=== PATIENT | female | born 1950 | race Caucasian/White ===

== ENCOUNTER 2020-06-24 12:26 | Outpatient (CLI) | payer MEDICARE, SELFPAY ==
--- NOTE | ~2020-06-24 | XR_ITS ---
EXAMINATION: XR chest 2V DATE: 06/24/2020 09:35 INDICATION: Shortness of breath TECHNIQUE: PA and lateral views of the chest are obtained. COMPARISON: 06/05/2012 FINDINGS: The lungs are free of acute opacities. There is no pleural effusion or pneumothorax. The ca rdiomediastinal silhouette is normal. There is mild thoracic spondylosis. There are apparent changes of left mastectomy with implant reconstruction and left axillary lymph node dissection. IMPRESSION: 1. No acute cardiopulmonary abnormality. Reviewed, dictated and finalized at location A.
[2020-06-24 09:41] LABS: Basophils Absolute Auto 0.1 K/mm3 (0.0-0.1); Basophils Percent Auto 1.6 % (0.2-1.2); Eosinophils Absolute Auto 0.6 K/mm3 (0-0.3); Eosinophils Percent Auto 8.1 % (0-4.4); Hematocrit 39.2 % (37.0-47.0); Hemoglobin 12.9 g/dL (12.0-15.0); Immature Granulocyte Absolute 0.04 K/mm3 (0.00-0.031); Immature Granulocyte Percent A 0.6 % (0-0.5); Lymphocytes Absolute Auto 1.76 K/mm3 (0.9-3.2); Lymphocytes Percent Auto 24.9 % (18.3-44.2); Mean Corpuscular HGB Conc 32.9 g/dl (32-36); Mean Corpuscular Hemoglobin 30.6 pg (26-34); Mean Corpuscular Volume 92.9 fl (80-100); Mean Platelet Volume 9.3 fl (7.4-10.4); Monocytes Absolute Auto 0.5 K/mm3 (0.1-0.6); Monocytes Percent Auto 6.5 % (2.6-8.5); Neutrophils Absolute Auto 4.1 K/mm3 (1.3-6.7); Neutrophils Percent Auto 58.3 % (45.5-73.1); Platelet Count Result 324 k/mm3 (150-375); Red Blood Count 4.22 M/mm3 (4.2-5.4); White Blood Count 7.1 K/mm3 (4.5-10.0)
[2020-06-24 09:53] LABS: Alanine Aminotransferase 135 U/L (4-35); Albumin Level 4.3 g/dL (3.5-5.1); Alkaline Phosphatase 316 U/L (38-126); Anion Gap 13.2 mmol/L (7-16); Aspartate Amino Transferase 38 U/L (14-36); Bilirubin,Total 0.4 mg/dL (0.2-1.3); Blood Urea Nitrogen 17 mg/dL (7-17); Calcium 9.1 mg/dL (8.4-10.2); Carbon Dioxide 28 mmol/L (22-30); Chloride 103 mmol/L (98-107); Estimated Glomerular Filt Rate > 60; Glucose 102 mg/dL (65-105); Potassium 4.2 mmol/L (3.4-5.0); Sodium 140 mmol/L (137-145)
[2020-06-24 13:54] LABS: Hepatitis B Surface Antigen Negative (Negative)
[2020-06-24 14:00] LABS: HAV RESULT Negative (Negative); Hepatitis B Core IgM Result Negative (Negative)
[2020-06-24 14:11] LABS: Hepatitis C Virus Antibody Negative (Negative)
[2020-06-29 18:50] LABS: EBV Nuclear Ab Interpretation Past; EBV Virus Capsid Ag IgM Ab <36.00 U/mL (<36.00)
== END 2020-06-24 12:27 | disposition home or self-care (01) ==
PROVIDERS: PCP Family Medicine; Visit Provider Family Medicine
DX: R06.02 Shortness of breath (principal); R05 Cough; R53.83 Other fatigue; R74.8 Abnormal levels of other serum enzymes
CPT/HCPCS: 36415; 71046; 80053; 80074; 85025; 86664; 86665

== ENCOUNTER 2020-07-13 08:39 | Outpatient (CLI) | payer MEDICARE, SELFPAY ==
--- NOTE | ~2020-07-13 | US_ITS ---
EXAMINATION: US right upper quadrant DATE: 07/13/2020 09:24 INDICATION: Abnormal levels of other serum enzymes. TECHNIQUE: Multiple grayscale and Doppler ultrasound images of the abdomen were obtained. COMPARISON: None FINDINGS: The visualized portions of the head, body, and tail of the pancreas are normal. The liver i s normal without focal lesion. There is normal flow in main portal vein. The gallbladder is normal in size and contains a 4 mm polyp, likely a benign cholesterol polyp needing no follow-up. No gallstone s or gallbladder wall thickening. There was no sonographic Meyer sign. The common duct is normal and measures 6 mm. IMPRESSION: 1. No etiology for abnormal liver function tests. Reviewed, dictated and finalized at location B.
[2020-07-13 09:41] LABS: Alanine Aminotransferase 23 U/L (4-35); Albumin Level 4.4 g/dL (3.5-5.1); Alkaline Phosphatase 99 U/L (38-126); Anion Gap 7 mmol/L (8-16); Aspartate Amino Transferase 30 U/L (14-36); Bilirubin,Total 0.5 mg/dL (0.2-1.3); Blood Urea Nitrogen 15 mg/dL (7-17); Calcium 9.3 mg/dL (8.4-10.2); Carbon Dioxide 30 mmol/L (22-30); Chloride 101 mmol/L (98-107); Cholesterol 178 mg/dL (0-200); Estimated Glomerular Filt Rate > 60; Glucose 103 mg/dL (65-105); HDL Direct 55 mg/dL; Sodium 138 mmol/L (137-145); Triglycerides 124 mg/dL (<150)
[2020-07-13 09:52] LABS: LDL Cholesterol Direct 95 mg/dL
== END 2020-07-13 08:40 | disposition home or self-care (01) ==
LOC: ANHIMG 08:39
PROVIDERS: PCP Family Medicine; Visit Provider Family Medicine
DX: R74.8 Abnormal levels of other serum enzymes (principal); R53.83 Other fatigue; F41.8 Other specified anxiety disorders; Z79.899 Other long term (current) drug therapy
CPT/HCPCS: 36415; 76705; 80053; 80061; 82248

== ENCOUNTER 2020-08-26 10:21 | Outpatient (CLI) | payer MEDICARE, SELFPAY ==
--- NOTE | ~2020-08-26 | MM_ITS ---
EXAMINATION: MM scrn laura implant RT w oswaldo HISTORY: Screening mammogram TECHNIQUE: Craniocaudal and mediolateral oblique 3-D tomosynthesis images with implant displacement a nd synthetic 2-D images were generated. Craniocaudal and mediolateral oblique views of the breasts wi thout implant displacement were obtained using full field digital mammography. CAD analysis was submi tted and interpreted. COMPARISON: 05/23/2018, 03/01/2017, 09/28/2015 right implant digital screening mammogram examinations BREAST PARENCHYMAL COMPOSITION: The breasts are heterogeneously dense, which may obscure small masses . FINDINGS: Right breast implant is noted, centered well lateral of midline. There is no evidence of tidwell spicious mass, calcification, or architectural distortion to suggest malignancy in either breast. The re has been no suspicious interval change. IMPRESSION: 1. No mammographic evidence of malignancy. 2. Recommend routine screening mammography in one year. BI-RADS Category 1: Negative Reviewed, dictated and finalized at location A.
== END 2020-08-26 10:22 | disposition home or self-care (01) ==
PROVIDERS: PCP Family Medicine; Visit Provider Obstetrics & Gynecology
DX: Z12.31 Encounter for screening mammogram for malignant neoplasm of breast (principal)
CPT/HCPCS: 77063; 77067

== ENCOUNTER 2021-02-06 14:10 | Outpatient (CLI) | payer MEDICARE, SELFPAY ==
--- NOTE | 2021-02-06 14:18 | ECG_ITS ---
Measurements Intervals Paicines Rate: 65 P: 58 OR: 172 QRS: 40 QRSD: 78 T: 36 QT: 389 QTc: 406 Interpretive Statements SINUS RHYTHM INCOMPLETE RIGHT BUNDLE BRANCH BLOCK DELAYED PRECORDIAL R/S TRANSITION BORDERLINE T WAVE ABNORMALITY- ANTERIOR LEADS BORDERLINE ECG Electronically Signed On 02-06-2021 14:49:35 SENIOR BIOINFORMATICS SCIENTIST by Wesley Rodrigues D.O.
== END 2021-02-06 14:11 | disposition home or self-care (01) ==
PROVIDERS: PCP Family Medicine; Visit Provider Family Medicine
DX: Z01.810 Encounter for preprocedural cardiovascular examination (principal); I45.10 Unspecified right bundle-branch block
CPT/HCPCS: 93005

== ENCOUNTER 2021-06-12 03:16 | Day surgery (SDC) | payer MEDICARE, SELFPAY ==
[2021-05-24 13:00] VITALS: BMI 25.7
[2021-06-12 09:09] VITALS: BP 126/70; PULSE 72; RESP 16; TEMP 36.4; O2SAT 98; BMI 25.1
[2021-06-12] MEDS: LACTATED RINGERS 1,000 ML 150 ML IV CONT (09:25)
--- NOTE | 2021-06-12 09:38 | WPDANESEPPF ---
Anes - Initial Pre Proc Eval Procedure: Operation Date: 06/12/21 10:30 Proposed Procedures p Screening Colonoscopy - Fred Jorgensen MD Date/Time: 06/12/21 09:38 Surgeon: Fred Jorgensen MD Pre Op Diagnosis: neoplasm screening Patient Data Age: 70 Gender: F Height: 1.63 m Weight: 66.4 kg Last Vital Signs Temp 36.4 C 06/12/21 09:09 Pulse 72 06/12/21 09:09 Resp 16 06/12/21 09:09 BP 126/70 06/12/21 09:09 Pulse Ox 98 06/12/21 09:09 Allergies Allergy/AdvReac Type Severity Reaction Status Date / Time latex Allergy Unknown Rash Verified 06/12/21 09:07 Penicillins Allergy Unknown rash Verified 06/12/21 09:07 Sulfa (Sulfonamide Allergy Unknown allergic Verified 06/12/21 09:07 Antibiotics) Home Medications Medication Instructions Recorded Confirmed Type latanoprost 0.005 % eye drops 1 drop EACH EYE QPM 01/11/20 06/12/21 History fluoxetine 10 mg capsule 10 mg PO HS #90 cap 03/31/21 06/12/21 Rx timolol maleate 1 drp RIGHT EYE BID 05/24/21 06/12/21 History Patient hx anesthesia problems: none Family hx anesthesia problems: none PMFSH Past Medical History Medical History Arthroplasty planned 11-10-2016 Cataract Hepatitis C antibody test negative Surgical History Surgical History H/O left breast implant H/O mastectomy Family History Family History Mother Family history of glaucoma Family history of malignant neoplasm of breast in first degree relative Father Hypertension Family history of aortic aneurysm, Onset Age: 74 Social History Social History Smoking packs per day: 1 Smoking cigarettes per day: 20.0 Years smoked: 19 Smoking pack-years: 19.00 Smoking status: Former smoker Tobacco type: cigarettes Smoking end date: 12/02/86 Alcohol intake: current Alcohol use details: socially Living arrangements: with family Gender identity (if verbalized by the patient): Female Spiritual care concerns: No Anes - Eval Final PreProcedure Day of Procedure 06/12/21 09:38 Patient weight: normal Heart: regular rate and rhythm Lungs: clear to auscultation Airway: Mallampati scale class II Neurological: alert and oriented Last oral intake: >/= 8 hours ASA classification: II Emergent: no Anesthetic plan: proceed Anesthesia type and monitoring: general GIVS and standard monitoring Informed Consent: The patient's anesthetic plan and its attendant risks and benefits were discussed with the patient/family/POA. Questions were solicited and answers provided to the satisfaction of the patient/family/POA.
--- NOTE | 2021-06-12 09:59 | PM.HPGS ---
History of Present Illness History of Present Illness Consent: Risks, benefits, and alternatives have been discussed and questions answered. Patient agrees to proceed with procedure. Chief complaint: neoplasm screening Narrative: Luly Anderson is a 70 year old female Referred for colon cancer screening Review of Systems Review of Systems: All systems reviewed & are unremarkable except as noted in HPI and below PMFSH Past Medical History Medical History Arthroplasty planned 11-10-2016 Cataract Hepatitis C antibody test negative Surgical History Surgical History H/O left breast implant H/O mastectomy Family History Family History Mother Family history of glaucoma Family history of malignant neoplasm of breast in first degree relative Father Hypertension Family history of aortic aneurysm, Onset Age: 74 Social History Social History Smoking packs per day: 1 Smoking cigarettes per day: 20.0 Years smoked: 19 Smoking pack-years: 19.00 Smoking status: Former smoker Tobacco type: cigarettes Smoking end date: 12/02/86 Alcohol intake: current Alcohol use details: socially Living arrangements: with family Gender identity (if verbalized by the patient): Female Spiritual care concerns: No Meds Home Medications and Allergies Home Medications Medication Instructions Recorded Confirmed Type latanoprost 0.005 % eye drops 1 drop EACH EYE QPM 01/11/20 06/12/21 History fluoxetine 10 mg capsule 10 mg PO HS #90 cap 03/31/21 06/12/21 Rx timolol maleate 1 drp RIGHT EYE BID 05/24/21 06/12/21 History Allergies Allergy/AdvReac Type Severity Reaction Status Date / Time latex Allergy Unknown Rash Verified 06/12/21 09:07 Penicillins Allergy Unknown rash Verified 06/12/21 09:07 Sulfa (Sulfonamide Allergy Unknown allergic Verified 06/12/21 09:07 Antibiotics) Vital Signs Vital Signs - 24 hr 06/12/21 09:09 Temperature 36.4 C Pulse Rate 72 Respiratory Rate 16 Blood Pressure 126/70 Pulse Oximetry 98 Exam Resp: Auscultation: clear to auscultation bilaterally Cardio: Rate: regular rate Rhythm: regular rhythm GI: GI Palp: Yes Soft to palpation and No Tenderness to palpation present (GI) Assessment and Plan Assessment and plan (1) Colon cancer screening: Code(s): Z12.11 - Encounter for screening for malignant neoplasm of colon Status: Acute Assessment and Plan: Colonoscopy with possible biopsy or polypectomy or cautery or injection of substances.
[2021-06-12 10:22] VITALS: BP 96/50; PULSE 72; RESP 22; O2SAT 97
[2021-06-12 10:32] VITALS: BP 104/53; PULSE 65; RESP 22; O2SAT 100
[2021-06-12 10:42] VITALS: BP 101/90; PULSE 59; RESP 13; O2SAT 98
== END 2021-06-12 11:00 | disposition home or self-care (01) ==
PROVIDERS: PCP Family Medicine; Visit Provider Internal Medicine Gastroenterology
PROC: 0DJD8ZZ Inspection of Lower Intestinal Tract, Via Natural or Artificial Opening Endoscopic (ICD-10-PCS; CPT 45378; principal; 2021-06-12 10:30)
DX: Z12.11 Encounter for screening for malignant neoplasm of colon (principal); Z87.891 Personal history of nicotine dependence
CPT/HCPCS: 45380; 88305; J2704; J7120

== ENCOUNTER 2022-03-20 08:35 | Outpatient (CLI) | payer MEDICARE, SELFPAY ==
--- NOTE | ~2022-03-20 | MM_ITS ---
EXAMINATION: MM scrn laura implant BI w oswaldo HISTORY: Screening mammogram TECHNIQUE: Craniocaudal and mediolateral oblique 3-D tomosynthesis images with implant displacement a nd synthetic 2-D images were generated. Craniocaudal and mediolateral oblique views of the breasts wi thout implant displacement were obtained using full field digital mammography. CAD analysis was submi tted and interpreted. COMPARISON: 08/26/2020, 05/23/2018, 03/01/2017 right implant screening mammogram examinations BREAST PARENCHYMAL COMPOSITION: The breasts are heterogeneously dense, which may obscure small masses . FINDINGS: Status post left mastectomy and implant reconstruction. Right breast implant. There is no evidence of suspicious mass, calcification, or architectural distortion to suggest malig eddie in either breast. There has been no suspicious interval change. IMPRESSION: 1. No mammographic evidence of malignancy. 2. Recommend routine screening mammography in one year. BI-RADS Category 1: Negative Reviewed, dictated and finalized at location A.
== END 2022-03-20 08:36 | disposition home or self-care (01) ==
LOC: ANHIMG 08:36
PROVIDERS: PCP Family Medicine; Visit Provider Obstetrics & Gynecology
DX: Z12.31 Encounter for screening mammogram for malignant neoplasm of breast (principal)
CPT/HCPCS: 77063; 77067

== ENCOUNTER 2022-08-31 08:44 | Outpatient (CLI) | payer MEDICARE, SELFPAY ==
--- NOTE | 2022-08-31 08:55 | EST_ITS ---
Patient Info Name: Luly Anderson Age: 71 years : 1950 Gender: Female Ht: 64 in Wt: 153 lbs BSA: 1.79 m2 HR: 76 bpm BP: 135 / 66 mmHg Exam Date: 08/31/2022 9:11 AM Exam Location: [facility] Patient Status: Outpatient Admit Date: 08/31/2022 Staff Ordering Physician: Suly Leonard NP-[employer] Packer: Mariann Weston RDCS Attending Provider: ELHAM KAT DO Referring Physician: Aisha MONIQUE; Exam Type: CA stress echo Study Info Indications R07.9 - Chest pain, unspecified Summary 1. 1. Negative Jese exercise stress test for ischemic ST changes by ECG criteria. 2. 2. Reduced functional capacity, achieving 5.6 METs of workload. 3. 3. Appropriate HR response to exercise. 4. 4. Appropriate HR recovery at 1 minute post exercise. 5. 5. Negative stress echocardiogram for ischemia by wall motion analysis. 6. 6. Patient informed of the above results. Stress Echo Findings Left Ventricle Appropriate increase in LV endocardial thickening with systole. Appropriate augmentation of contractility with systole. No wall motion abnormality. Left Ventricle Normal LV systolic function, no wall motion abnormality. Protocol: Jese Stress ECG Details Stage: REST Duration (min): 1 min : 11 sec Speed (mph): 0.0 Grade (%): 0 HR (bpm): 77 SBP (mmHg): 135 DBP (mmHg): 66 METS: --- Stage: REST Duration (min): 14 min : 30 sec Speed (mph): 0.0 Grade (%): 0 HR (bpm): 82 SBP (mmHg): 135 DBP (mmHg): 66 METS: --- Stage: STAGE 1 Duration (min): 1 min : 0 sec Speed (mph): 1.7 Grade (%): 10 HR (bpm): 112 SBP (mmHg): 135 DBP (mmHg): 66 METS: --- Stage: STAGE 1 Duration (min): 2 min : 0 sec Speed (mph): 1.7 Grade (%): 10 HR (bpm): 137 SBP (mmHg): 135 DBP (mmHg): 66 METS: --- Stage: STAGE 1 Duration (min): 3 min : 0 sec Speed (mph): 1.7 Grade (%): 10 HR (bpm): 146 SBP (mmHg): 182 DBP (mmHg): 52 METS: --- Stage: STAGE 2 Duration (min): 0 min : 31 sec Speed (mph): 0.0 Grade (%): 0 HR (bpm): 148 SBP (mmHg): 182 DBP (mmHg): 52 METS: --- Stage: RECOVERY Duration (min): 0 min : 28 sec Speed (mph): 0.0 Grade (%): 0 HR (bpm): 130 SBP (mmHg): 182 DBP (mmHg): 52 METS: --- Stage: RECOVERY Duration (min): 1 min : 28 sec Speed (mph): 0.0 Grade (%): 0 HR (bpm): 99 SBP (mmHg): 183 DBP (mmHg): 53 METS: --- Stage: RECOVERY Duration (min): 2 min : 28 sec Speed (mph): 0.0 Grade (%): 0 HR (bpm): 90 SBP (mmHg): 183 DBP (mmHg): 53 METS: --- Stage: RECOVERY Duration (min): 3 min : 28 sec Speed (mph): 0.0 Grade (%): 0 HR (bpm): 84 SBP (mmHg): 152 DBP (mmHg): 60 METS: --- Stage: RECOVERY Duration (min): 4 min : 28 sec Speed (mph): 0.0 Grade (%): 0 HR (bpm): 77 SBP (mmHg): 152 DBP (mmHg): 60 METS: --- -------
== END 2022-08-31 08:45 | disposition home or self-care (01) ==
PROVIDERS: PCP Family Medicine; Visit Provider Family Medicine
DX: R07.9 Chest pain, unspecified (principal)
CPT/HCPCS: 93351

== ENCOUNTER 2022-10-03 08:18 | Outpatient (CLI) | payer MEDICARE, SELFPAY ==
[2022-10-04 11:07] LABS: Kit Draw Collected
== END 2022-10-03 08:19 | disposition home or self-care (01) ==
LOC: ANHGOSHLAB 08:21
PROVIDERS: PCP Family Medicine; Visit Provider Nurse Practitioner
DX: Z13.21 Encounter for screening for nutritional disorder (principal); Z13.220 Encounter for screening for lipoid disorders; Z13.29 Encounter for screening for other suspected endocrine disorder; Z13.6 Encounter for screening for cardiovascular disorders; Z53.8 Procedure and treatment not carried out for other reasons
CPT/HCPCS: 99199; 36415

== ENCOUNTER 2022-10-15 09:40 | Outpatient (CLI) | payer MEDICARE, SELFPAY ==
--- NOTE | ~2022-10-15 | DEXA_ITS ---
Bone Density Report Name: CAL STAFFORD Age: 71 Sex: Female Ethnicity: White Date of : 1950 Indication: postmenopausal; screening for osteoporosis; height loss; inflammatory bowel disease; cancer; Referring Provider: EDMOND VELÁZQUEZ Study: Bone densitometry was performed. Exam Date: October 15, 2022 Accession number: [id number] Bone Density: Region BMD T-score Z-score Classification AP Spine(L1, L3, L4) 0.985 -0.6 1.6 Normal Femoral Neck (Left) 0.600 -2.2 -0.4 Osteopenia Total Hip (Left) 0.625 -2.6 -1.0 Osteoporosis World Health Organization criteria for BMD impression classify patients as: Normal (T-score at or above -1.0), Osteopenia (T-score between -1.0 and -2.5), or Osteoporosis (T-score at or below -2.5). 10-year Fracture Risk: FRAX not reported because: Some T-score for Spine Total or Hip Total or Femoral Neck at or below -2.5 Clinical Information Provided by Patient: Has used the following medications: Vitamin D, Calcium Has the following medical conditions: Cancer, Inflammatory bowel diseases Patient maximum height was 65 Menopause Age: 51 No regular weight bearing exercise Drinks caffeinated beverages Onset of menses at age 14 Number of children 0 Impression: The patient has osteoporosis, based on the Left Total Hip T-score. Discussion: INCREASED RISK OF FRACTURE. BONE DENSITY IS UNDESIRABLY LOW AT ONE OR MORE SKELETAL SITES, CONSISTENT WITH POSTMENOPAUSAL OSTEOPOROSIS. This patient's lowest T-score meets the World Health Organization's (WHO) criteria for osteoporosis at one or more sites (T-score -2.5 or below). In untreated patients, the risk of osteoporotic fracture increases approximately two-fold for each 1.0 SD decrease in T-score. Low bone density is not the only risk factor for fracture; also consider factors such as patient's age, frailty or poor health, risk of falling, risk of injury, previous osteoporotic fracture, family history of osteoporosis, cigarette smoking, low body weight, etc. Not everyone with low bone mineral density has osteoporosis; osteomalacia and other metabolic bone disorders should also be considered. Patients who have osteoporosis should be evaluated for specific diseases and conditions (secondary causes) that may cause or contribute to bone loss. The [place] Association of Clinical Endocrinologists (AACE) and National Osteoporosis Foundation (NOF) recommend pharmacologic intervention for all postmenopausal women whose T-score is in this range. The patient should follow a healthful lifestyle (good nutrition with adequate calcium and vitamin D, and appropriate weight-bearing exercise). Follow-Up: Consider a repeat BMD and Vertebral Fracture Assessment (VFA) exam in 2 years or sooner if medically necessary, to reassess this patient's status. Reported by: SHEY on 10/15/2022 10:00:00 AM. __
== END 2022-10-15 09:41 | disposition home or self-care (01) ==
LOC: ANHIMG 09:41
PROVIDERS: PCP Family Medicine; Visit Provider Nurse Practitioner
DX: Z78.0 Asymptomatic menopausal state (principal); M85.852 Other specified disorders of bone density and structure, left thigh; M81.0 Age-related osteoporosis without current pathological fracture
CPT/HCPCS: 77080

== ENCOUNTER 2022-10-16 10:49 | Outpatient (RCR) | payer MEDICARE, SELFPAY | END 2022-10-17 08:41 | disposition home or self-care (01) | LOC: ANHGOSHPT 10:49 | PROVIDERS: PCP Family Medicine; Visit Provider Nurse Practitioner | DX: M54.9 Dorsalgia, unspecified (principal); M62.89 Other specified disorders of muscle | CPT/HCPCS: 99199 ==

== ENCOUNTER 2022-11-12 15:08 | Outpatient (CLI) | payer MEDICARE, SELFPAY ==
--- NOTE | ~2022-11-12 | XR_ITS ---
EXAMINATION: XR chest 2V Exam Date/Time: 11/12/2022 15:23 CLEANING SUPERVISOR HISTORY: R05.9 - Cough, unspecified Comparison: 06/24/2020. RESULT: Lines, tubes, and devices: Bilateral breast augmentation. Left breast/axillary surgical clips. Lungs and pleura: Clear. Cardiomediastinal silhouette: Stable. Other: No acute osseous or upper abdominal finding. IMPRESSION: No acute cardiopulmonary process. Reviewed, dictated and finalized at location K. NING SUPERVISOR
== END 2022-11-12 15:09 | disposition home or self-care (01) ==
PROVIDERS: PCP Family Medicine; Visit Provider Nurse Practitioner
DX: R05.9 Cough, unspecified (principal)
CPT/HCPCS: 71046

== ENCOUNTER 2022-12-26 11:15 | Outpatient (RCR) | payer MEDICARE, SELFPAY ==
--- NOTE | 2022-10-03 10:49 | PTOPEVAL1 ---
Assessment and note entered by Tyler Anderson, PT Evaluation Information Assessment Status Evaluation Diagnosis lumbar pain Onset gradual Subjective Information Patient reports she has been noticing more back pain that is moving around to her groin lately. She is unable to sleep on her stomach, been having trouble with getting in and out of bed without pain. The pain is worse in the AM until she starts moving around. The patient has a DEXA bone scan scheduled for . She reports she has not been as diligent with her exercise program since , but still tried to get in at least 10,000 steps a day. Patient had a herniated disc about 23 years ago. Reported Pain Level Pain Score 3: Self Report Assessment PT Clinical Summary Luly is a 71 year old female coming into the clinic today for lumbar pain with radiating symptoms along the groin bilaterally. Patient's main issues are inability to sleep on her stomach, getting in and out of bed pain free, and just general pain. The patient has weakness in JONATHAN hips and core along with tightness in her JONATHAN rectus femoris. Physical therapy should be able to help with the weakness with strengthening exercises and stretching for the rectus femoris. As the problems diminish she should see decreased pain with position transfers and in general. Plan of Care Interventions Electrical Stimulation,Gait Training,Hot Pack/Cold Pack,Manual Therapy,Neuro Re-education,Patient/ Caregiver Education,Therapeutic Activities, Therapeutic Exercise,Ultrasound PT Services Indicated Yes Treatment Frequency and 1x/wk Duration These treatments will address the objective and functional deficits as defined above. The patient will be advanced safely and appropriately in order for the patient to progress towards his/her prior level of function. Additional exercises will be introduced and as well as a comprehensive home exercise program upon discharge, if needed, ?to ensure carryover of functional gains achieved in the clinic. This treatment plan has been reviewed and agreement upon by the patient.
--- NOTE | 2022-10-17 09:16 | PTOPEVAL1 ---
Assessment and note entered by Jaelyn Palmer DPT Evaluation Information Assessment Status Evaluation Diagnosis lumbar pain Onset gradual Subjective Information see below Reported Pain Level Pain Score 3: Self Report Additional Pain Score Comments The patient reports a history of low back pain radiating anteriorly as well as pelvic pain. She has a previous R FREDDIE and was recently diagnosed with L hip osteoporosis and lumbar arthritis. History of endometriosis with multiple laparoscopies. History of miscarriages, no live births. She reports a current increased frequency of urination as well as urge incontinence. Will get some urine leakage on the way to the bathroom, not every time. Typically no stress incontinence, infrequently in the past. She also reports a history of IBS and fecal incontinence several times a week. Assessment PT Clinical Summary The patient reports additional complaints of pelvic pain, urinary and fecal incontinence. She demonstrates pelvic floor muscle strength impairments and overall increased muscle tone which are contributing to her pain and incontinence. She will benefit from address these impairments in addition to her back pain in order to safely reduce pain and dysfunction. Plan of Care Interventions Electrical Stimulation,Hot Pack/Cold Pack,Manual Therapy,Neuro Re-education,Patient/Caregiver Education,Therapeutic Activities,Therapeutic Exercise,Self-Care/Home Management PT Services Indicated Yes Treatment Frequency and 1 time a week for 6 weeks Duration These treatments will address the objective and functional deficits as defined above. The patient will be advanced safely and appropriately in order for the patient to progress towards his/her prior level of function. Additional exercises will be introduced and as well as a comprehensive home exercise program upon discharge, if needed, ?to ensure carryover of functional gains achieved in the clinic. This treatment plan has been reviewed and agreement upon by the patient.
--- NOTE | 2022-11-28 16:15 | PTOPPROG ---
Assessment and note entered by Jaelyn Palmer DPT Evaluation Information Assessment Status Progress Diagnosis lumbar pain Onset gradual Subjective Information Pt reports some improvements with therapy, not using the restroom as much. Also reports less urgency with voiding. Highest back pain in last week 04/10 and lowest 02/08. Reports 2 instances of urinary incontinence in the last week after waiting too long to void. Assessment PT Clinical Summary The patient has made some progress in therapy. She reports decreased pain and decreased incontinence and demonstrates improved pelvic floor strength and endurance, and hip strength. She will benefit from continued therapy to further address her pain and incontinence and safely return to [facility]. Plan of Care Interventions Hot Pack/Cold Pack,Manual Therapy,Neuro Re- education,Patient/Caregiver Education,Therapeutic Activities,Therapeutic Exercise,Self-Care/Home Management PT Services Indicated Yes Treatment Frequency and 1 time a week for 6 weeks Duration These treatments will address the objective and functional deficits as defined above. The patient will be advanced safely and appropriately in order for the patient to progress towards his/her prior level of function. Additional exercises will be introduced and as well as a comprehensive home exercise program upon discharge, if needed, ?to ensure carryover of functional gains achieved in the clinic. This treatment plan has been reviewed and agreement upon by the patient.
--- NOTE | 2022-12-28 11:50 | PCPTNOTE ---
This treatment is being continued on visit number [id number]. Please see documentation on both accounts to view progress. Completed interventions, outcomes, and problems have been marked as Inactive to facilitate the copying of the Care plan routine for recurring accounts.
== END 2022-12-28 11:38 | disposition home or self-care (01) ==
LOC: ANHGOSHPT 11:15
PROVIDERS: PCP Family Medicine; Visit Provider Nurse Practitioner
DX: M62.89 Other specified disorders of muscle (principal)
CPT/HCPCS: 97110; 97112; 97140; 97161

== ENCOUNTER 2023-02-25 10:00 | Outpatient (RCR) | payer MEDICARE, SELFPAY ==
--- NOTE | 2022-12-28 11:48 | PCPTNOTE ---
The treatment documented on this account is a continuation of the treatment documented on visit number [id number]. Please see documentation on both accounts to view progress. The Plan of Care has been transitioned and updated within the new V#. I have addressed and agree with the discipline specific Problems, Interventions, and Goals for the current certification period. Completed interventions, outcomes, and problems have been marked as Inactive to facilitate the copying of the Care plan routine for recurring accounts.
--- NOTE | 2023-01-10 10:30 | PTOPPROG ---
Assessment and note entered by Jaelyn Palmer DPT Evaluation Information Assessment Status Progress Subjective Information Highest pain in the last week 03/11 and lowest 02/08 . Pt reports improvements in frequency of urination and minimal urgency unless she drinks a couple sodas. No incontinence in the last week. Assessment PT Clinical Summary The patient has made good progress in therapy. She reports decreased pain, decreased urinary urgency /frequency, and no incontinence in the last week. She demonstrates less pain with pelvic floor palpation and improved hip strength. Due to her progress but continued pain, pt will benefit from further therapy to safely return to prior level of function. Plan of Care Interventions Hot Pack/Cold Pack,Manual Therapy,Neuro Re- education,Patient/Caregiver Education,Therapeutic Activities,Therapeutic Exercise,Self-Care/Home Management PT Services Indicated Yes Treatment Frequency and 1 time every other week for 3 visits total Duration These treatments will address the objective and functional deficits as defined above. The patient will be advanced safely and appropriately in order for the patient to progress towards his/her prior level of function. Additional exercises will be introduced and as well as a comprehensive home exercise program upon discharge, if needed, ?to ensure carryover of functional gains achieved in the clinic. This treatment plan has been reviewed and agreement upon by the patient.
--- NOTE | 2023-02-25 10:43 | PTOPDC ---
Assessment and note entered by Jaelyn Palmer DPT Evaluation Information Assessment Status Discharge Subjective Information Pt reports her hip has been bothering her a lot since coming back from vacation, 04/10 currently. Was exercising in the pool a lot while she was gone, maybe overdid it. Has an appointment to see her hip doctor in March. Does not think her bladder has been bothering her, has not really had any pelvic pain in the last week. No incontinence in the last week. Reported Pain Level Pain Score Assessment PT Clinical Summary The patient has made good progress in therapy and no longer reports pain with pelvic floor palpation . She reports no pelvic pain or incontinence in the last week. She reports a change in her hip issues after being on vacation and will be following up with a physician for that. Due to her progress with pelvic floor therapy, plan to discharge this visit. She has been educated to continue HEP and follow up as needed. Plan of Care Interventions PT Services Indicated No Treatment Frequency and - Duration
== END 2023-02-26 10:03 | disposition home or self-care (01) ==
LOC: ANHGOSHPT 10:00
PROVIDERS: PCP Family Medicine; Visit Provider Nurse Practitioner
DX: M62.89 Other specified disorders of muscle (principal)
CPT/HCPCS: 97110; 97112; 97140

== ENCOUNTER 2023-03-25 10:59 | Outpatient (CLI) | payer MEDICARE, SELFPAY ==
[2023-03-25 14:16] LABS: Kit Draw Collected
== END 2023-03-25 11:00 | disposition home or self-care (01) ==
LOC: ANHGOSHLAB 11:02
PROVIDERS: PCP Family Medicine; Visit Provider Family Medicine
DX: E78.5 Hyperlipidemia, unspecified (principal); E66.3 Overweight; Z79.899 Other long term (current) drug therapy; R07.89 Other chest pain; R20.0 Anesthesia of skin; R20.2 Paresthesia of skin
CPT/HCPCS: 36415

== ENCOUNTER → 2023-03-25 11:19 | Outpatient (CLI) | payer MEDICARE, SELFPAY ==
--- NOTE | ~2023-03-25 | XR_ITS ---
EXAMINATION: XR chest 2V DATE: 03/25/2023 11:35 INDICATION: Mid chest pain. Shortness of breath. TECHNIQUE: Frontal and lateral views of the chest were obtained. COMPARISON: Chest 2 views 11/12/2022 FINDINGS: The chest demonstrates clear lungs without pneumonia, pleural effusion, or pneumothorax. Th e heart size is normal. There is a left breast implant. There are surgical clips in left axilla. IMPRESSION: 1. No acute cardiopulmonary disease. Reviewed, dictated and finalized at location A.
== END ==
PROVIDERS: PCP Family Medicine; Visit Provider Family Medicine
DX: R07.89 Other chest pain (principal); R06.02 Shortness of breath
CPT/HCPCS: 71046

== ENCOUNTER → 2023-04-12 10:02 | Outpatient (CLI) | payer MEDICARE, SELFPAY ==
--- NOTE | ~2023-04-12 | MR_ITS ---
MRI of the lumbar spine Clinical History: Back pain Technique: Axial T2-weighted images, and sagittal T1-weighted, T2-weighted, and T2 fat-sat images wer e acquired. Findings: There is no fracture or subluxation of the lumbar spine. Vertebral bodies maintain normal h eight and line. No suspicious bone marrow signal abnormality seen. At L1-L2, there is moderate degenerative disc narrowing with minimal disc bulge and mild facet arthro caroline. No spinal canal stenosis or neural foraminal narrowing. At L2-L3, there is severe degenerative disc narrowing. There is minimal disc bulge with moderate face t arthropathy. No spinal canal stenosis or neural foraminal narrowing. At L3-L4, there is minimal disc bulge with mild to moderate facet arthropathy. No spinal canal stenos is or neural foraminal narrowing. At L4-L5, there is diffuse disc bulge with superimposed right paracentral disc extrusion extending in feriorly behind the L5 vertebral body. There is associated right lateral recess stenosis and probable impingement of the right L5-S1 level nerve root. No michael central canal stenosis at this level. Ther e is moderate bilateral neural foraminal narrowing. At L5-S1, there is advanced degenerative disc narrowing. There is mild disc bulge and mild facet arth ropathy. There is left lateral recess stenosis. There is severe right neural foraminal narrowing and moderate to severe left neural foraminal narrowing. Paravertebral soft tissues are unremarkable otherwise. Impression: Large right paracentral disc extrusion at L4-L5 extending inferiorly, resulting in right lateral rece ss stenosis, and probable impingement of the right L5-S1 level nerve root. There is moderate bilatera l neural foraminal narrowing at this level. Additional moderate to advanced degenerative spondylosis at L5-S1, as detailed above. Mild degenerative changes at remaining lumbar levels, as detailed above. Reviewed, dictated and finalized at location . Impression: Large right paracentral disc extrusion at L4-L5 extending inferiorly, resulting in right lateral recess stenosis, and probable impingement of the right L5-S1 level nerve root. There is moderate bilateral neural foraminal narrowing at thi s level. Additional moderate to advanced degenerative spondylosis at L5-S1, as detailed above. Mild degenerative changes at remaining lumbar levels, as detailed above.
== END ==
PROVIDERS: PCP Family Medicine; Visit Provider Nurse Practitioner Family
DX: M51.26 Other intervertebral disc displacement, lumbar region (principal); M47.817 Spondylosis without myelopathy or radiculopathy, lumbosacral region; M47.816 Spondylosis without myelopathy or radiculopathy, lumbar region
CPT/HCPCS: 72148

== ENCOUNTER 2023-06-06 10:28 | Outpatient (CLI) | payer MEDICARE, SELFPAY ==
--- NOTE | ~2023-06-06 | MM_ITS ---
EXAMINATION: MM scrn laura implant BI w oswaldo HISTORY: Screening mammogram, history of left mastectomy and implant reconstruction TECHNIQUE: Craniocaudal and mediolateral oblique 3-D tomosynthesis images of the right breast with im plant displacement and synthetic 2-D images were generated. Craniocaudal and mediolateral oblique vie ws of the breasts without implant displacement were obtained using full field digital mammography. CA D analysis was submitted and interpreted. COMPARISON: 03/20/2022, 08/26/2020, 05/23/2018 BREAST PARENCHYMAL COMPOSITION: The breasts are heterogeneously dense, which may obscure small masses . FINDINGS: There is no evidence of suspicious mass, calcification, or architectural distortion to sugg est malignancy in either breast. There has been no suspicious interval change. IMPRESSION: 1. No mammographic evidence of malignancy. 2. Recommend routine screening mammography in one year. BI-RADS Category 1: Negative Reviewed, dictated and finalized at location A.
== END 2023-06-06 10:29 | disposition home or self-care (01) ==
LOC: ANHIMG 10:30
PROVIDERS: PCP Family Medicine; Referring Provider Obstetrics & Gynecology; Visit Provider Family Medicine
DX: Z12.31 Encounter for screening mammogram for malignant neoplasm of breast (principal)
CPT/HCPCS: 77063; 77067

== ENCOUNTER 2023-10-21 09:58 | Outpatient (CLI) | payer MEDICARE, SELFPAY ==
[2023-10-21 18:44] LABS: Alanine Aminotransferase 19 U/L (6-35); Albumin Level 4.6 g/dL (3.5-5.1); Alkaline Phosphatase 51 U/L (38-126); Anion Gap 7 mmol/L (8-16); Aspartate Amino Transferase 33 U/L (14-36); Bilirubin,Total 0.7 mg/dL (0.2-1.3); Blood Urea Nitrogen 15 mg/dL (7-17); Calcium 9.3 mg/dL (8.4-10.2); Carbon Dioxide 33 mmol/L (22-30); Chloride 101 mmol/L (98-107); Cholesterol 190 mg/dL (0-200); Estimated Glomerular Filt Rate > 60; Glucose 88 mg/dL (65-110); HDL Direct 54 mg/dL; Potassium 4.4 mmol/L (3.4-5.0); Sodium 141 mmol/L (137-145); Triglycerides 159 mg/dL (<150)
[2023-10-21 20:54] LABS: LDL Cholesterol Direct 91 mg/dL
[2023-10-21 22:24] LABS: Vitamin D 25 Hydroxy 59.7 ng/mL
== END 2023-10-21 09:59 | disposition home or self-care (01) ==
PROVIDERS: PCP Family Medicine; Visit Provider Nurse Practitioner
DX: E55.9 Vitamin D deficiency, unspecified (principal); Z00.00 Encounter for general adult medical examination without abnormal findings
CPT/HCPCS: 36415; 80053; 80061; 82306; 84443

== ENCOUNTER → 2023-12-05 10:52 | Outpatient (CLI) | payer MEDICARE, SELFPAY ==
--- NOTE | ~2023-12-05 | XR_ITS ---
AP view of the pelvis and AP and lateral views of the left hip Clinical history: Pain Findings: No acute fracture or dislocation is seen. Right hip arthroplasty in place, without hardware complication. There is moderate to advanced degenerative change of the left hip joint. Soft tissues are unremarkable. Impression: Moderate to advanced degenerative change of the left hip joint. Right hip arthroplasty. Reviewed, dictated and finalized at location . C WORKER Impression: Moderate to advanced degenerative change of the left hip joint. Right hip arthroplasty.
== END ==
PROVIDERS: PCP Orthopaedic Surgery; Visit Provider Nurse Practitioner
DX: M16.12 Unilateral primary osteoarthritis, left hip (principal)
CPT/HCPCS: 73502

== ENCOUNTER 2024-01-29 11:24 | Outpatient (CLI) | payer MEDICARE, SELFPAY ==
--- NOTE | 2024-01-29 12:05 | ECG_ITS ---
Measurements Intervals Balsam Rate: 65 P: 7 IL: 164 QRS: 36 QRSD: 76 T: 29 QT: 398 QTc: 414 Interpretive Statements SINUS RHYTHM COMPARED TO ECG 02/06/2021 14:28:23 NO SIGNIFICANT CHANGES Electronically Signed On 01-29-2024 16:43:27 NARRATIVE WRITER by Nevaeh Holden M.D.
[2024-01-29 12:20] LABS: Hematocrit 37.7 % (37.0-47.0); Hemoglobin 12.1 g/dL (12.0-15.0); Mean Corpuscular HGB Conc 32.1 g/dl (32-36); Mean Corpuscular Hemoglobin 30.3 pg (26-34); Mean Corpuscular Volume 94.3 fl (80-100); Mean Platelet Volume 9.1 fl (7.4-10.4); Platelet Count Result 254 k/mm3 (150-375); Red Cell Distribution Width 11.9 % (11.5-14.5); White Blood Count 6.1 K/mm3 (4.5-10.0)
[2024-01-29 12:33] LABS: Alanine Aminotransferase 26 U/L (6-35); Albumin Level 4.5 g/dL (3.5-5.1); Alkaline Phosphatase 63 U/L (38-126); Anion Gap 3 mmol/L (8-16); Aspartate Amino Transferase 31 U/L (14-36); Bilirubin,Total 0.6 mg/dL (0.2-1.3); Blood Urea Nitrogen 25 mg/dL (7-17); Calcium 9.6 mg/dL (8.4-10.2); Carbon Dioxide 34 mmol/L (22-30); Chloride 99 mmol/L (98-107); Estimated Glomerular Filt Rate > 60; Glucose 82 mg/dL (65-110); Potassium 4.9 mmol/L (3.4-5.0); Sodium 136 mmol/L (137-145)
== END 2024-01-29 11:25 | disposition home or self-care (01) ==
LOC: ANHLAB 11:28
PROVIDERS: PCP Orthopaedic Surgery; Visit Provider Family Medicine
DX: Z01.810 Encounter for preprocedural cardiovascular examination (principal); E78.5 Hyperlipidemia, unspecified; E66.3 Overweight; R94.31 Abnormal electrocardiogram [ECG] [EKG]; Z79.899 Other long term (current) drug therapy
CPT/HCPCS: 36415; 80053; 85027; 93005

== ENCOUNTER 2025-01-25 09:00 | Outpatient (CLI) | payer MEDICARE, SELFPAY ==
--- OUTSIDE RECORDS SUMMARY | 2025-01-25 09:35 | XMS_ITS | Encounter Summary ---
Author Organization [facility] Healthcare Address [address] [place] [address] Care Team Providers Care It Security Administrator Name Role Phone Adeline Rios Primary Care Provider +1- [phone] Reason for Visit * Diagnostic Imaging (Routine) - Closed Specialty Diagnoses / Procedures Referred By Janice t Referred To Contact Diagnoses Left hip pain Procedures XR Hip Left 2 or 3 Views W Pelvis Martin Castanon MD Phone: tel: fax: [facility] Referral ID Status Reason Start Date Expiration Date Visits Re quested Visits Authorized [id number] Closed 03/10/2024 04/09/2025 1 1 Encounter Details Date Type Department Care Team (Late st Contact Info) Description 03/10/2024 3:00 PM CDT Hospital Encounter [facility] Orthopedics and Sports Medicine at [address] [phone] Social History Tobacco Use Types Packs/Day Years Used Date Smoking Tobacco: Former Cigarettes Q uit: 06/13/1986 Smokeless Tobacco: Never Personal Safety Answer Date Recorded Getting School Help Needed Not on file 02/13 Comments Unknown Sex and Gender Information Value Date Recorded Sex Assigned at Not on file 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
--- OUTSIDE RECORDS SUMMARY | 2025-01-25 09:35 | XMS_ITS | Patient Health Record ---
Author Organization [facility] Address [address] [place], [place] [address] Care Team Providers Care Cooperative Education Director Name Role Phone Murtaza Mims MD Primary Care Provider [phone] Martin Castanon [phone] ALLERGIES Allergen (clinical drug ingredient) Drug/Non Drug Allergy documented on EMR Reaction Allergy Type Onset Date Status penicillin Unknown Drug Allergy Active Sulfa Unknown Drug Allergy Active Latex Gloves Unknown Drug Allergy Acti ve REASON FOR REFERRAL No Information MEDICATIONS Medication SIG (Take, Route, Fr equency, Duration) Notes Start Date End Date Status Vistaril 25 MG 1 capsule Orally fou r times a day for 7 days 02/06/2024 Active oxyCODONE HCl 5 MG 1 tablet as needed O rally every 6 hrs for 7 days 02/06/2024 Active Fluoxetine Active Latanoprost Active CeleBREX 200 MG 1 capsule with food Orally Once a day for 30 day(s) 02/06/2024 Active Aspirin 81 MG 1 tablet Orally twic e a day for 30 day(s) 02/06/2024 Active SOCIAL HISTORY Sex Assigned At : Social History Observation Description Sex Assigned At Unknown PROBLEMS Problem Type ICD Code Onset Dates Problem Status W/U Status Risk SNOMED Code Notes Problem Primary osteoarthritis of left hip (M16.12) Active confirmed 237918378553927 Problem Primary osteoarthritis of right hip (M16.11) Active confirmed 147064029 Problem H/O total hip arthroplasty (Z96.649) Active confirmed History of tota l hip arthroplasty (874048004573) Problem Left knee pain (M25.562) Active confirmed Arthralgia of t he lower leg (382333318) Problem Arthritis of left hip (M16.12) Active confirmed Arthritis of le ft hip (7024446788076159) Encounters Encounter Location Date Provider Diagnosis [facility] [address] [place] [address] 02/07/2024 Martin Castanon Arthritis of left hip M16.12 [facility] [address] [place], [place] [id number] 02/06/2024 Martin Castanon ASSESSMENTS Encounter Date Diagnosis Assessment Notes Treatment Notes Treatment Clinical Notes 02/07/2024 Arthritis of left hip (ICD-10 - M16.12) PLAN OF TREATMENT Pending Test Test Name Order Date X ray : Hip, left, 2 12/12/2023 X ray : Hip, right, 2 03/19/2023 X ray : Hip, right, 2 12/07/2016 X ray : Hip, right, 2 02/12/2017 X ray : Hip, right, 2 05/14/2017 X ray : Bilateral Hip & Pelvis 3 019 X ray : Knee, left 3 views 05/14/2017 Insurance Providers Payer Name Payer Address Payer Phone Subscriber Number Group Number Insured Name Patient Relationship to Insured Coverage Start Date Coverage End Date [employer] [id number] [address] [place] [address] [id number] Luly Anderson Self - patient is the insured MEDICAL (GENERAL) HISTORY Medical History History ICD Code Breast Cancer Osteoarthritis Glaucoma Surgical History Surgery Date(Month/Year) left mastectomy and breast reconstructio n 07/1998, 07/2000 Cataract Replacement 02/03/2015 Right Total Hip 11/07/16 Hospitalization History Reason Date(Month/Year) Same as surgeries
--- OUTSIDE RECORDS SUMMARY | 2025-01-25 09:35 | XMS_ITS | Encounter Summary ---
Author Organization [facility] Healthcare Address [address] [place] [address] Care Team Providers Care Dress Fitter Name Role Phone Adeline Rios Primary Care Provider [phone]- [phone] Reason for Visit * Diagnostic Imaging (Routine) - Closed Specialty Diagnoses / Procedures Referred By Janice t Referred To Contact Diagnoses Left hip pain Procedures XR Hip Left 2 or 3 Views W Pelvis Martin Castanon MD Phone: tel: fax: [facility] Medical Group Referral ID Status Reason Start Date Expiration Date Visits Re quested Visits Authorized [id number] Closed 06/08/2024 07/08/2025 1 1 Encounter Details Date Type Department Care Team (Late st Contact Info) Description 06/08/2024 11:43 AM CDT Hospital Encounter [facility] Medical Group Orthopedics and Sports Medicine at [address] [address] Social History Tobacco Use Types Packs/Day Years Used Date Smoking Tobacco: Former Cigarettes Q uit: 06/13/1986 Smokeless Tobacco: Never Personal Safety Answer Date Recorded Getting School Help Needed Not on file 02/13 Comments Unknown Sex and Gender Information Value Date Recorded Sex Assigned at Not on file 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
--- OUTSIDE RECORDS SUMMARY | 2025-01-25 09:35 | XMS_ITS | Referral Summary ---
Author Organization [facility] Address [facility] [place] [address] Care Team Providers Care Ecdis N Navigation Operator Name Role Phone Adeline Rios DO Primary Care Provider [phone]- [phone] Allergies Active Allergy Reactions Criticality Noted Date Comments Latex Rash Medium 12/10/2019 Penicillins Hives,Swelling High 12/10/2019 Sulfa (Sulfonamide Antibiotics) Swelling High 08/2020 Medications cyclobenzaprin e (FLEXERIL) 5 mg tablet TK 1 T PO TID 1 9 Active latanoprost (XALATAN) 0.005 % ophthalmic solution INSTILL 1 DROP INTO OU QHS 4 9 Active hydrocortisone butyrate (LOCOID) 0.1 % cream hydrocortisone butyrate 0.1 % topical cream Active azithromycin (ZITHROMAX) 250 mg tablet azithromycin 250 mg tablet Active budesonide-for moteroL (SYMBICORT) 80-4.5 mcg/actuation inhaler Symbicort 80 mcg-4.5 mcg/actuation HFA aerosol inhaler Active cephalexin (KEFLEX) 500 mg capsule cephalexin 500 mg capsule Active difluprednate (DurezoL) 0.05 % drops Durezol 0.05 % eye drops Active estradioL (ESTRACE) 0.01 % (0.1 mg/gram) vaginal cream estradiol 0.01% (0.1 mg/gram) vaginal cream INSERT 1 GRAM INTO THE VAGINA THREE TIMES A WEEK Active ketoconazole (NIZORAL) 2 % cream ketoconazole 2 % topical cream Active moxifloxacin (Vigamox) 0.5 % ophthalmic solution Vigamox 0.5 % eye drops Active nepafenac (Ilevro) 0.3 % drops,suspensi on Ilevro 0.3 % eye drops,suspension Active nystatin ointment nystatin 100,000 unit/gram topical ointment Active terbinafine (LamiSIL) 250 mg tablet terbinafine HCl 250 mg tablet Active triamcinolone (KENALOG) 0.025 % cream triamcinolone acetonide 0.025 % topical cream Active FLUoxetine (FLUoxetine) 10 mg tablet/capsule Take 10 mg by mouth daily Active budesonide EC (ENTOCORT EC) 3 mg 24 hr capsule Take by mouth daily 1 Active albuterol HFA (ProAir HFA) 90 mcg/actuation inhalerIndicat ions:Bronchiti s Inhale 2 puffs every 4 (four) hours as needed for wheezing or shortness of breath 8.5 g 1 Active Active Problems Problem Noted Date Diagnosed Date S/P hip replacement, left 06/08/2024 Immunizations Immunization Administration Dates Next Due Influenza, Quadrivalent, Spl it, Preservative Free, Intramuscular 10/13/2018 Pneumococcal Polysaccharide PPV23 10/13/2018 Social History Tobacco Use Types Packs/Day Years Used Date Smoking Tobacco: Former Cigarettes Q uit: 06/13/1986 Smokeless Tobacco: Never Personal Safety Answer Date Recorded Getting School Help Needed Not on file 02/13 Comments Unknown Sex and Gender Information Value Date Recorded Sex Assigned at Not on file 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 Gender Identity Not on file Sexual Orientation Not on file Last Filed Vital Signs Vital Sign Reading Time Taken Comments Blood Pressure 124/68 06/14/2023 1:10 PM CDT Pulse 65 06/14/2023 1:10 PM CDT Temperature 37 C (98.6 F) 07/28/2021 8:38 AM CDT Respiratory Rate 18 06/13/2020 9:19 AM CDT Oxygen Saturation 95% 07/28/2021 8:38 AM CDT Inhaled Oxygen Concentration - - Weight 64.9 kg (143 lb) 03/10/2024 2:59 PM CDT Height 165.1 cm (5' 5 ) 03/10/2024 2:59 PM CDT Body Mass Index 23.8 03/10/2024 2:59 PM CDT Plan of Treatment Not on file Insurance MEDICARE SOLUTIONS [facility] MEDICARE MEDICARE SOLUTIONS [facility] [place] [address] A[employer]NA MEDICARE Care Teams Ecdis N Navigation Operator Relationship Specialty Start Date End Date Adeline Rios DO PCP - General Family Medicine 05/31/23
--- OUTSIDE RECORDS SUMMARY | 2025-01-25 09:36 | XMS_ITS | Clinical Summary ---
Author Organization [facility] Address [address] [facility] [place] [address] Phone Care Team Providers Care Resident Care Provider Name Role Phone Murtaza Mims MD Primary Care Provider Allergies Active Allergy Reactions Criticality Noted Date Comments Latex Rash Low 12/10/2019 Penicillins Swelling High 12/10/2019 Sulfa (Sulfonamide Antibiotics) Swelling High 08/2020 Medications FLUoxetine (PROzac) 10 mg capsule Take 10 mg by mouth daily. Active OTHER Eye drop for glaucoma Active Active Problems Problem Noted Date Diagnosed Date Breast asymmetry following reconstructive surger y 12/11/2019 Social History Tobacco Use Types Packs/Day Years Used Date Smoking Tobacco: Never Smokeless Tobacco: Never Alcohol Use Standard Drinks/Week Comments Yes 0 (1 standard drink = 0.6 oz pur e alcohol) OCCAS Comments Unknown Sex and Gender Information Value Date Recorded Sex Assigned at Not on file Legal Sex Female 12:03 PM CDT Gender Identity Not on file Sexual Orientation Not on file Last Filed Vital Signs Vital Sign Reading Time Taken Comments Blood Pressure 124/78 01/12/2021 9:21 AM MATERIAL HANDLING SUPERVISOR Pulse 102 02/10/2020 2:40 PM CDT Temperature 36.2 C (97.2 F) 02/10/2020 1:36 PM CDT Respiratory Rate 21 02/10/2020 2:40 PM CDT Oxygen Saturation 94% 02/10/2020 2:40 PM CDT Inhaled Oxygen Concentration - - Weight 69.9 kg (154 lb) 01/12/2021 9:21 AM MATERIAL HANDLING SUPERVISOR Height 163.8 cm (5' 4.5 ) 01/12/2021 9:21 AM MATERIAL HANDLING SUPERVISOR Body Mass Index 26.03 01/12/2021 9:21 AM MATERIAL HANDLING SUPERVISOR Plan of Treatment Health Maintenance Due Date Last Done Comments DTAP/TDAP/TD VACCINES (1 - Tdap) 1970 BREAST CANCER SCREENING 1991 COLORECTAL SCREENING 1996 Colorectal Cancer Screening 1996 FIT-DNA Q 3 years 1996 FIT/FOBT Q 1 year 1996 Flex Sig/CT Colonography Q 5 years 1996 ZOSTER VACCINE (1 of 2) 2001 OSTEOPOROSIS SCREENING 2016 PNEUMOCOCCAL VACCINE 65+ YEARS (2 of 2 - PCV) 10/13/20 19 10/13/2018 INFLUENZA VACCINE (#1) 2024 10/13/2018 RSV VACCINE (60+ or ) (1 - 1-dose 75+ series) 2026 Medical Devices Implanted Type Area Assistant Strength Coach Device Identifier Shelf Expiration Date Model / Serial / Lot Natrelle Inspira Softtouch Breast Implant Implanted:Qty : 1 on 02[place]10/[place] by [place] [facility] [place] Breast [employer] 12/07/2024 SSX-470 / [id number] / Natrelle Inspira Softtouch Breast Implant Implanted:Qty : 1 on 02/10/2020 by Brendan Zavaleta [place] [facility] [place] Breast [employer] 12/05/2024 SSLP-[id number] / [id number] / [id number] Explanted Type Area Assistant Strength Coach Device Identifier Shelf Expiration Date Model / Serial / Lot Breast Implant Explanted:Qty: 1 on 02/10/2020 by Brendan Zavaleta MD at [facility] [place] Left: Breast Description:No other informa tion available on this implant Breast Implant Explanted:Qty: 1 on 02/10/2020 by Brendan Zavaleta MD at [facility] [place] Right: Breast Description:No information a vailable on this implant. Insurance RX [employer] RX Member Subscriber Plan / Payer (Ef fective 2017-Present) Name:Luly Anderson Relation to Subscriber:Self Name:Luly Anderson Payer ID:Not on file Group ID:[id number] Type:RX Medicare Part D Address: [address] [facility] [address] Advance Directives For more information, please contact: [phone] * Full Code (Latest Code Status on File) Date Activated Date Inactivated Comments 02/10/2020 10:14 AM 02/10/2020 5:00 PM Care Teams Resident Care Provider Relationship Specialty Start Date End Date Murtaza Mims MD [address] [place] [address] PCP - General Family Practice 11/05/19
--- OUTSIDE RECORDS SUMMARY | 2025-01-25 09:36 | XMS_ITS | Clinical Summary ---
Author Organization [facility] Address [address] [place] [address] Care Team Providers Care Installation & Maintenance Executive Name Role Phone Adeline Rios DO Primary Care Provider [phone]- [phone] Allergies Active Allergy Reactions Criticality Noted Date [...] Free, Intramuscular 10/13/2018 Pneumococcal Polysaccharide PPV23 10/13/2018 Surgical History Surgery Date Site/Laterality Comments MASTECTOMY BREAST IMPLANT REMOVAL Medical History Medical History Date Comments Glaucoma Depression Breast cancer (HCC) Family History Medical History Relation Name Comments Aortic aneurysm Father Diabetes Maternal Grandmother Breast cancer Mother COPD Mother Diabetes Paternal Grandfather Relation Name Status Comments Father Maternal Grandmother Mother Paternal Grandfather Social History Tobacco Use Types Packs/Day Years Used Date Smoking Tobacco: Former Cigarettes Q uit: 06/13/1986 Smokeless Tobacco: Never Personal Safety Answer Date Recorded Getting School Help Needed Not on file 02/13 Comments Unknown Sex and Gender Information Value Date Recorded Sex Assigned at Not on file 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 Gender Identity Not on file Sexual Orientation Not on file Obstetrics History Last Filed Vital Signs Vital Sign Reading [...] 03/10/2024 2:59 PM CDT Plan of Treatment Health Maintenance Due Date Last Done Comments Breast Cancer Screening-Mammogram 1951 Colon Cancer Screening-Colonoscopy 1951 Depression Screening 1951 Fall Risk Assessment 1950 Hepatitis C Screening 1951 Osteoporosis Screening-Bone Density Scan 1951 DTaP/Tdap/Td Vaccine (1 - Tdap) 1962 Hepatitis B Screening 1969 Zoster Vaccine (1 of 2) 2001 Well Visit 65+ 2016 Influenza Vaccine (#1) 2024 10/13/2018, 2015 Pneumococcal vaccine 65+ Completed 10/13/2018, 08/2016 Insurance MEDICARE SOL[employer]IONS [employer] MEDICARE MEDICARE [employer] MEDICARE AETNA MEDICARE Care Teams Installation & Maintenance Executive Relationship Specialty Start Date End Date Adeline Rios DO PCP - General Family Medicine 05/31/23
--- OUTSIDE RECORDS SUMMARY | 2025-01-25 09:36 | XMS_ITS | Data Portability ---
Author Organization [place] [facility], Main Office Address [address] [place] [address] Care Team Providers Care Tunnel Miner Name Role Phone FANNIE BONE Primary Care Provider FANNIE BONE Referring Provider [phone] Assessment Encounter Date Assessment Date Assessment LastModified by Organization Details LastModified Time 12/30/2023 12/30/2023 Impression: Patient has severe type 2 osteoarthritis of her left hip. She has had a gradually worsening symptoms over the last 6 months and her symptoms are not adequately controlled with medication. Physical therapy is unlikely to make a significant difference and cortisone injection is something she would prefer to avoid and this would not give long-term relief anyway and I feel that proceeding with hip replacement in her case would be appropriate at this time. I have explained to her that I am transitioning between employment with [employer] and employment at [employer]. My employment with [employer] will start March 02. If she wanted me to do her hip replacement I would have to see her after March 02 and plan to schedule her surgery after that. It is very important to her to get this done as soon as possible and she would prefer to see the orthopedic surgeon who did her right hip replacement on February 06. This is certainly understandable. I will be happy to see her back on as-needed basis. 30 minutes were spent total care this patient more than half the time spent in [id number] care. [email or web address] Not available 01/05/2024 19:44:40 Plan of Treatment Reminders Order Date Submit Date Provider Last Modified By Organization Details Last Modified Time Details Appointments None record ed. Lab None record ed. Referral None record ed. Procedures None record ed. Surgeries None record ed. Imaging None record ed. Medication Orders None record ed. Patient TargetsNo targets recorded. Patient InstructionsNo instructions recorded. Reason for Referral None Reported. Results Created Date Observation Date Name Description Value Unit Range Abnormal Flag Note LastModifiedBy Organization Detail LastModifiedTime 12/05/19 24 12/05/2023 XR, hip + pelvi s, unila teral No observ ation record ed. [address], [place], [address], 12/05/2023 17:01:01 Result Notes None recorded. Problems Name Problem SNOMED Code Status Onset Date Resolution Date Notes Provider Name and Address Organization Details Recorded Time Cytologic finding 627776996 Active Not Available [facility] 3 05:54:36 Cervical intraepith elial neoplasia grade 1 724517723 Active Not Available [facility] 3 05:54:36 Pain of left knee joint 7938736961513 07 Active 2023 DONELL Aleman, [place] 4 15:22:16 Problem Notes None recorded. Procedures Surgical History Date Name Laterality Status Provider Name and Address Organization Details Recorded Time total replacement of hip completed DONELL Aleman [place] 12/30/2023 15:19:30 Imaging Results Imaging Date Name Status LastModified by Organiz ation Details LastModified Time 12/05/2023 XR, hip + pelvis, unilateral completed [address], [place], [address], 12/05/2023 17:01:01 Procedure Notes None recorded. Medical Equipment None Reported. Allergies Allergen ID Allergen Name Allergen Category Reaction Reaction Severity Criticality Documentation Date Start Date Code Code System Note Provider Name and Address Organization Details Recorded Time 22576 Substance with sulfonami de structure and antibacte rial mechanism of action (substanc e) medicatio n Not available Not available Not available 01/30/2023 46814 8003 SNOMED Not Available [facility] 3 05:59:49 89386 Product containin g penicilli n (product) medicatio n hives Not available Not available 01/30/2023 90975 8001 SNOMED Not Available [facility] 3 05:59:49 33372 latex environme nt,medica tion Not available Not available Not available 01/30/2023 78642 91 RxNorm Not Available [facility] 3 05:59:49 Medications Name Sig Start Date Stop Date Status Note LastModified by Organization Details LastModified Time celecoxib 200 mg capsule 01/05 completed Not Available Not Available Not Available latanoprost 0.005 % eye drops INSTILL 1 DROP IN BOTH EYES EVERY EVENING DIRECTED active Not Available Not Available No t Available methocarbam ol 500 mg tablet TAKE 2 TABLETS BY MOUTH THREE TIMES DAILY NEEDED active Not Available Not Available No t Available clindamycin HCl 300 mg capsule TAKE 1 CAPSULE BY MOUTH EVERY 6 HOURS UNTIL ALL TAKEN 12/30 completed Not Available Not Available Not Available azithromyci n 250 mg tablet ZPK 01/17 completed Not Available Not Available Not Available ibuprofen 800 mg tablet 12/30 completed Not Available Not Available Not Available nystatin 100,000 unit/gram topical ointment active Not Available Not Available Not Available hydrocodone 5 mg-acetamin ophen 325 mg tablet TAKE 1 OR 2 TABLETS BY MOUTH EVERY 6 HOURS NEEDED FOR PAIN 12/30 completed Not Available Not Available Not Available meloxicam 15 mg tablet TAKE 1 TABLET BY MOUTH EVERY DAY active Not Available Not Available No t Available prednisone 20 mg tablet TAKE 3 TABLETS BY MOUTH DAILY 12/30 completed Not Available Not Available Not Available fluoxetine 10 mg tablet TK 1 T PO Q DAY 01/11 completed Not Available Not Available Not Available ciprofloxac in 500 mg tablet 12/31 completed Not Available Not Available Not Available hydrocodone 10 mg-acetamin ophen 325 mg tablet 12/31 completed Not Available Not Available Not Available oxycodone-a cetaminophe n 5 mg-325 mg tablet 12/31 completed Not Available Not Available Not Available terbinafine HCl 250 mg tablet active Not Available Not Available Not Available methocarbam ol 750 mg tablet TAKE 1 TABLET BY MOUTH THREE TIMES DAILY NEEDED FOR MUSCLE SPASM 12/30 completed Not Available Not Available Not Available triamcinolo ne acetonide 0.025 % topical cream active Not Available Not Available Not Available aspirin 325 mg tablet,kimmy yed release 01/05 completed Not Available Not Available Not Available simvastatin 5 mg tablet TAKE 1 TABLET BY MOUTH DAILY 12/30 completed Not Available Not Available Not Available cephalexin 500 mg capsule active Not Available Not Available Not Available erythromyci n 5 mg/gram (0.5 %) eye ointment active Not Available Not Available Not Available nitrofurant oin macrocrysta l 100 mg capsule active Not Available Not Available Not Available lidocaine 5 % topical patch APPLY 1 PATCH TOPICALLY ONCE DAILY. LEAVE ON MOST PAINFUL AREA FOR UP TO 12 HOURS. 12/30 completed Not Available Not Available Not Available brimonidine 0.2 % eye drops INSTILL ONE DROP INTO THE RIGHT EYE TWICE DAILY 12/30 completed Not Available Not Available Not Available fluoxetine 10 mg capsule TAKE 1 CAPSULE BY MOUTH DAILY 12/30 completed Not Available Not Available Not Available dorzolamide 22.3 mg-timolol 6.8 mg/mL eye drops 12/31 completed Not Available Not Available Not Available hydrocortis one butyrate 0.1 % topical cream active Not Available Not Available Not Available gabapentin 100 mg capsule TAKE 1 CAPSULE BY MOUTH THREE TIMES DAILY NEEDED 12/30 completed Not Available Not Available Not Available budesonide DR - ER 3 mg capsule,del ayed,extend ed release TAKE 3 CAPSULES BY MOUTH DAILY 12/30 completed Not Available Not Available Not Available estradiol 0.01% (0.1 mg/gram) vaginal cream USE 1 GRAM VAGINALLY 2 TIMES A WEEK 12/30 completed Not Available Not Available Not Available methylpredn isolone 4 mg tablets in a dose pack active Not Available Not Available Not Available timolol maleate 0.5 % eye drops active Not Available Not Available Not Available ketoconazol e 2 % topical cream active Not Available Not Available Not Available diazepam 5 mg tablet 12/31 completed Not Available Not Available Not Available cyclobenzap rine 5 mg tablet TK 1 T PO TID 01/11 completed Not Available Not Available Not Available Vigamox 0.5 % eye drops active Not Available Not Available Not Available nitrofurant oin monohydrate /macrocryst als 100 mg capsule 01/17 completed Not Available Not Available Not Available brimonidine active Not Available Not A vailable Not Available budesonide- formoterol HFA 80 mcg-4.5 mcg/actuati on aerosol inhaler INHALE 2 PUFFS BY MOUTH EVERY 12 HOURS 12/30 completed Not Available Not Available Not Available brimonidine 0.2 %-timolol 0.5 % eye drops INSTILL 1 DROP IN BOTH EYES TWICE DAILY 12/30 completed Not Available Not Available Not Available Durezol 0.05 % eye drops active Not Available Not Available Not Available Prolia 60 mg/mL subcutaneou s syringe 12/30 completed Not Available Not Available Not Available Probiotic 12/30 completed Not Available Not Available Not Available Lumigan 0.01 % eye drops 12/31 completed Not Available Not Available Not Available Ilevro 0.3 % eye drops,suspe nsion active Not Available Not Available Not Available Lotemax 0.5 % eye gel drops 12/31 completed Not Available Not Available Not Available Fluzone High-Dose 2019-20 (PF) 180 mcg/0.5 mL intramuscul ar syringe ADM 0.5ML IM UTD 12/30 completed Not Available Not Available Not Available Vitals Date Recorded Body height Body mass index (BMI) Body weight Provider Name and Address Organization Details Last Updated DateTime 12/30/2023 160.02 cm 25.3 kg/m2 30103.71 g DONELL Aleman [place] 12/30/2023 15:26:03 Social History Question Answer Notes LastModified by Organizat ion Details LastModified Time Tobacco Smoking Status Former Smoker DONELL Aleman null [place] 12/30/2023 15:19:13 What Is Your Level Of Alcohol Consumption? None [email or web address] Information not available 12/30/2023 Sex: Unknown Functional Status None recorded. Mental Status None recorded. Family History Nothing Reported Notes:FAMILY HX DIABETES, [facility] [place], HYPERTENSION & HEART DISEASE Medical History Condition Response SKIN PROBLEMS Y CANCER: SPECIFY Y Gynecological HistoryNo gynecological history recorded. Obstetrics History GPAL:G 0 P 0 0 0 0 Past Encounters Encounter ID Performer Location Encounter Start Date Encounter Closed Date Diagnosis/Indication Diagnosis SNOMED-CT Code Diagnosis ICD10 Code Diagnosis Note [id number] Phoenix Thomas MD [facility] [address] [place] [id number] 12/30/2023 14:49:55 01/13/2024 10:51:22 Pain of left knee joint 6204077624 30221 M25.562 Health Concerns Section Related Observation LastModified by Organization Detai ls LastModified Time None Recorded Concern Status LastModified by Organization Details LastModified Time None Recorded Advance Directives Directive None Recorded Payers Encounter Date Sequence Insurance Name Policy Number Policy Lagunas Covered Member ID Lagunas Member ID Guarantor Name 12/30/2023 1 [employer] (MEDICARE REPLACEMENT PPO) [id number] 1 Luly Hummel Anderson [id number] Luly Anderson Notes Date Note Type Note Provider Name and Address Organization Details Recorded Time 12/30/2023 text/html patient is a 73-year-old female who presents for evaluation of her left hip. She started noticing pain in left hip last summer and early fall which has gradually worsened. She has had a slow her walking speed. She complains of pain groin and pain in the buttock. She had x-rays AP and frog-leg lateral on 12/05/2023 which demonstrates severe qpnd-qu-kdmr type 2 osteoarthritis. Incidental note is made of advanced degenerative disc disease L3-4 and L4-5 and she has a total hip replacement on the right. She has a history of L4-5 disc herniation diagnosed last April associated with lumbar spinal stenosis and she had pain on the right leg at that time and she still has some residual numbness in the ball of the right foot. She has not seen a back specialist but was seen at [facility]. She notes she was very active until this past summer. She teaches at [employer]. When her symptoms are more severe on the left she uses a cane She underwent right total knee arthroplasty with a super path approach by Dr. CORNELIO harris in 2016 and did very well with that and is very pleased with her hip replacement. She did have problems with severe hypotension after surgery. She had a spinal anesthetic with sedation and states that they were not able to give her any pain medication because her pressure was so labile. After 24 hours everything normalized and she did fine. [place] She had a friend who is hip replacement I did and she would like to discuss the option of proceeding with hip replacement as soon as possible. She has already made an appointment with Dr. Castanon at [facility] for February 06. She was hoping she could see me and have her hip replacement done sooner. Patient has a history of osteoporosis and takes Prolia. Her last injection was in May of 2023. She also takes calcium plus vitamin-D. History of breast cancer 1997 She has been taking meloxicam exercising Tylenol and methocarbamol for pain. When she had her herniated disc last summer she did have some physical therapy. She has not had a cortisone shot in this hip. She did have a cortisone shot in her right hip before surgery. It did not help her and then she had to wait 3 months to have her surgery so she would not want to try cortisone shot the left hip. Phoenix Thomas MD [address] [place] [address], [place] [address], [place], [address], [facility] 01/05/2024 19:44:55 OBGyn Episode No OBEpisode recorded.
--- OUTSIDE RECORDS SUMMARY | 2025-01-25 09:36 | XMS_ITS | Clinical Summary ---
Author Organization [facility] Address [address] [place] [address] Care Team Providers Care Collections Professional Name Role Phone Unavailable Primary Care Provider Unavailabl e Source Comments [facility],non-owned Affiliates and Associated Physician Practices is amultiple site organization consisting of ambulatory clinics and hospital sitesin [place], [place], [place] and [place]. This disclosure is being madepursuant to the Care Everywhere program and may not contain all information available regarding this patient. Last updated 18.[facility] Social History Tobacco Use Types Packs/Day Years Used Date Smoking Tobacco: Never Assessed Sex and Gender Information Value Date Recorded Sex Assigned at Not on file Gender Identity Not on file Sexual Orientation Not on file Plan of Treatment Health Maintenance Due Date Last Done Comments BONE DENSITY TESTING 1950 COLOGUARD (AGES 45-75) - COL ON CA SCREENING 1950 COLON MONITORING 1950 COLONOSCOPY - COLON CA SCREENING 1950 CT COLONOGRAPHY - COLON CA SCREENING 1950 Colorectal Cancer Screening 1950 FIT - COLON CA SCREENING 1950 FLEX SIG - COLON CA SCREENING 1950 LIPID TESTING 1950 MAMMOGRAM 1950 HEPATITIS C SCREENING 10/12/1969 DTAP/TDAP/TD VACCINES (1 - Tdap) 1970 PNEUMOCOCCAL VACCINE 50+ (1 of 1 - PCV) 2001 ZOSTER VACCINE (1 of 2) 2001 COVID-19 VACCINE ( - 2023-2 5 season) 2024 INFLUENZA VACCINE (#1) 2024 DEPRESSION SCREENING 12/02/2024 MEDICARE AWV CALENDAR YEAR 2024 Respiratory Syncytial Virus (RSV) Vaccine Pt: or over 60 yrs (1 - 1-dose 75+ series) 2026 HEPATITIS B VACCINE Aged Out No longe r eligible based on patient's age to complete this topic HIB VACCINE Aged Out No longer eligi ble based on patient's age to complete this topic HPV VACCINE Aged Out No longer eligi ble based on patient's age to complete this topic MENINGOCOCCAL (Group B) VACCINE Aged Out No longer eligible based on patient's age to complete this topic MENINGOCOCCAL VACCINE Aged Out No felicia ronni eligible based on patient's age to complete this topic
--- OUTSIDE RECORDS SUMMARY | 2025-01-25 09:36 | XMS_ITS | Clinical Summary ---
Author Organization [facility] Address [address] [place] [address] Care Team Providers Care Naval Inspector Name Role Phone Ashly Barksdale MD Primary Care Provider [phone] Allergies Active Allergy Reactions Criticality Noted Date Comments Latex Rash Medium 12/10/2019 Penicillins Hives,Swelling High 12/10/2019 Sulfa Antibiotics Swelling High 12/10/2019 Medications benzonatate (TESSALON) 200 MG capsule Take 200 mg by mouth 3 (three) times daily as needed. FOR COUGH 2 Active latanoprost (XALATAN) 0.005 % ophthalmic solution latanoprost 0.005 % eye drops INSTILL 1 DROP INTO BOTH EYES EVERY EVENING DIRECTED Active timolol (TIMOPTIC) 0.5 % ophthalmic solution 3 Active tobramycin-dexa methasone (TOBRADEX) ophthalmic solution tobramycin 0.3 %-dexamethasone 0.1 % eye drops,suspension SHAKE LIQUID AND INSTILL 1 DROP IN RIGHT EYE FOUR TIMES DAILY. START DROPS AFTER SURGERY Active budesonide-form oterol (SYMBICORT) 80-4.5 MCG/ACT inhaler Symbicort 80 mcg-4.5 mcg/actuation HFA aerosol inhaler Active brimonidine (ALPHAGAN) 0.2 % ophthalmic solution INSTILL ONE DROP INTO THE RIGHT EYE TWICE DAILY 3 Active albuterol sulfate HFA (PROAIR HFA) 108 (90 Base) MCG/ACT inhalerIndicati ons:Simple chronic bronchitis (CMS/[facility] HHS/[facility]) Inhale 2 puffs into the lungs every 4 (four) hours as needed for Wheezing or Shortness of breath. 18 g 5 Active Active Problems Problem Noted Date Diagnosed Date Simple chronic bronchitis (CMS/HCC HHS/HCC) 12/02 JOYCE (dyspnea on exertion) 12/20/2022 Chronic cough 12/20/2022 Environmental and seasonal allergies 12/20/2022 Family History Medical History Relation Comments Aneurysm Father Diabetes Father Breast Cancer Mother COPD Mother Diabetes Mother Relation Status Comments Father Mother Social History Tobacco Use Types Packs/Day Years Used Date Smoking Tobacco: Former Cigarettes - 1984 Smokeless Tobacco: Never Tobacco Cessation:Counseling Given: Not Answered Alcohol Use Standard Drinks/Week Comments Yes 0 (1 standard drink = 0.6 oz pur e alcohol) occansionally PHQ-2 Answer Date Recorded Patient Health Questionnaire-2 Score 0 12/20/2022 Comments Unknown Sex and Gender Information Value Date Recorded Sex Assigned at Not on file Legal Sex Female 11:58 AM CDT Gender Identity Not on file Sexual Orientation Not on file 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 Not on file Not on otf e Last Filed Vital Signs Vital Sign Reading Time Taken Comments Blood Pressure 98/74 12/20/2022 9:28 AM [employer] Pulse 69 12/20/2022 9:28 AM [employer] Temperature 36.8 C (98.2 F) 12/20/2022 9:28 AM [employer] Respiratory Rate 17 12/20/2022 9:28 AM [employer] Oxygen Saturation 98% 12/20/2022 9:28 AM [employer] Inhaled Oxygen Concentration - - Weight 70.6 kg (155 lb 9.6 oz) 12/20/2022 9:28 A M [employer] Height 163.8 cm (5' 4.5 ) 12/20/2022 9:28 AM [employer] Body Mass Index 26.3 12/20/2022 9:28 AM [employer] Plan of Treatment Health Maintenance Due Date Last Done Comments Colorectal Cancer Screening Colonoscopy (10 Years) 1951 Hepatitis C 1969 Mammogram Screening 1991 RSV Immunization or 60+ Years (1 - Risk 60-74 years 1-dose series) 2011 Annual Medicare Wellness Visit 2016 Dexa Scan (General) 2016 Pneumococcal Vaccine: 65+ Years (2 of 2 - PCV) 10/13/2019 10/13/2018 Zoster Vaccines (2 of 2) 12/31/2022 11/05/2022 COVID-19 Vaccine (3 - 2023-2 5 season) 2024 03/21/2021, 02/28/2021 Influenza Adult (#1) 2024 08/24/2021, 01/28/2020, 10/13/2018 PHQ-2 (Physician [place]) 12/02/2024 DTaP, Tdap and Td Vaccines ( 2 - Td or Tdap) 10/01/2032 10/01/2022 Meningococcal B Vaccine Aged Out No l onger eligible based on patient's age to complete this topic Meningococcal Vaccine Aged Out No felicia ronni eligible based on patient's age to complete this topic RSV Immunizations Under 20 Months Aged Out No longer eligible b ased on patient's age to complete this topic Insurance [employer] Care Teams Naval Inspector Relationship Specialty Start Date End Date Ashly Barksdale MD [address] [place] [address] DR [place] [place] [id number] PCP - General FAMILY PRACTICE 08/01/22
--- OUTSIDE RECORDS SUMMARY | 2025-01-25 09:36 | XMS_ITS | Patient Health Summary ---
Author Organization [facility] Address [address] [place] [address] Care Team Providers Care Director Of Brand Marketing Name Role Phone Unavailable Primary Care Provider Unavailabl e Note from [facility],non-owned Affiliates and Associated Physician Practices is amultiple site organization consisting of ambulatory clinics and hospital sitesin [place], [place], [place] and [place]. This disclosure is being madepursuant to the Care Everywhere program and may not contain all information available regarding this patient. Last updated 18.[facility] [employer] Social History Tobacco Use Types Packs/Day Years Used Date Smoking Tobacco: Never Assessed Sex and Gender Information Value Date Recorded Sex Assigned at Not on file Gender Identity Not on file Sexual Orientation Not on file Procedures * GROSS + MICRO EXAM(Performed 12/15/1999) Results * GROSS + MICRO EXAM (12/15/1999 1:57 PM DIRECTOR TRANSLATIONAL) Result CASE NUMBER [id number] Comment: ORDERING PHYSICIAN SATYA AQUINO SPECIMEN TYPE Colon Biopsy-SIGMOID Date 12/15/1999 Physician Marisa Gross Description The specimen is received in a single container of formalin, labeled with the patient's name and random colon biopsy . It consists of numerous friable yellow-haddad tissue fragments measuring 0.9 x 0.4 x 0.3 cm in aggregate. All tissue is wrapped and submitted entirely in a single cassette. JL/lmj Microscopic Exam Microscopic examination reveals multiple colonic mucosal fragments. The lamina propria shows a mildly increased number of lymphoplasmacytic cells intermixed with eosinophils. Benign lymphoid aggregates are seen. No evidence of any ulcerations, cryptitis, crypt abscess, granulomas, malignancy is seen. SR/JMC Diagnosis I. Sigmoid colon, biopsy A. Chronic inflammation, mild, non-specific B. No evidence of malignancy SR/c Consumer Affairs Director [facility] Path[facility] Melodie Fabian M.D. omed. 12/16/1999 1057 <1> CPT code 59334/30085 MISCELLANEOUS SAMPLES / Unknown 12/15/1999 1:57 PM DIRECTOR TRANSLATIONAL 12/15/1999 1:57 PM DIRECTOR TRANSLATIONAL Historical Provider LAB - PATHOLOGY/C YTOLOGY ORDERABLES
--- OUTSIDE RECORDS SUMMARY | 2025-01-25 09:36 | XMS_ITS ---
Author Organization [facility] Address [address] [place], [place] [address] Care Team Providers Care Candy Wrapping Machine Operator Name Role Phone Murtaza Mims MD Primary Care Provider Martin Castanon [phone] REASON FOR VISIT L THR PROBLEMS Problem Type ICD Code Onset Dates Problem Status W/U Status Risk SNOMED Code Notes Problem Arthritis of left hip (M16.12) Active confirmed Arthritis of left hip ([id number] 105) Encounters Encounter Location Date Provider Diagnosis [facility] [address] [place] [address] 02/07/2024 Martin Castanon Arthritis of left hip M16.12 ASSESSMENTS Encounter Date Diagnosis Assessment Notes Treatment Notes Treatment Clinical Notes 02/07/2024 Arthritis of left hip (ICD-10 - M16.12) PLAN OF TREATMENT No Information
--- OUTSIDE RECORDS SUMMARY | 2025-01-25 09:36 | XMS_ITS | Referral Summary ---
Author Organization [facility] Address [address] [place] [address] Care Team Providers Care Radiology Clerk Name Role Phone Unavailable Primary Care Provider Unavailabl e Source Comments [facility],non-owned Affiliates and Associated Physician Practices is amultiple site organization consisting of ambulatory clinics and hospital sitesin [place], [place] and [place]. This disclosure is being madepursuant to the Care Everywhere program and may not contain all information available regarding this patient. Last updated 18.[facility] Social History Tobacco Use Types Packs/Day Years Used Date Smoking Tobacco: Never Assessed Sex and Gender Information Value Date Recorded Sex Assigned at Not on file Gender Identity Not on file Sexual Orientation Not on file Plan of Treatment Not on file
[2025-01-25 12:10] LABS: Alanine Aminotransferase 22 U/L (6-35); Albumin Level 4.4 g/dL (3.5-5.1); Alkaline Phosphatase 56 U/L (38-126); Anion Gap 6 mmol/L (4-12); Aspartate Amino Transferase 37 U/L (14-36); Bilirubin,Total 0.7 mg/dL (0.2-1.3); Blood Urea Nitrogen 17 mg/dL (7-17); Calcium 8.9 mg/dL (8.4-10.2); Carbon Dioxide 30 mmol/L (22-30); Chloride 103 mmol/L (98-107); Cholesterol 184 mg/dL (0-200); Estimated Glomerular Filt Rate > 60; Glucose 90 mg/dL (65-110); HDL Direct 56 mg/dL; Potassium 3.9 mmol/L (3.4-5.0); Sodium 139 mmol/L (137-145); Triglycerides 112 mg/dL (<150)
[2025-01-25 12:21] LABS: LDL Cholesterol Direct 90 mg/dL
[2025-01-25 12:35] LABS: Hematocrit 40.3 % (37.0-47.0); Hemoglobin 13.2 g/dL (12.0-15.0); Mean Corpuscular HGB Conc 32.8 g/dl (32-36); Mean Corpuscular Hemoglobin 30.3 pg (26-34); Mean Corpuscular Volume 92.6 fl (80-100); Mean Platelet Volume 10.1 fl (7.4-10.4); Platelet Count Result 201 k/mm3 (150-375); Red Blood Count 4.35 M/mm3 (4.2-5.4); Red Cell Distribution Width 12.2 % (11.5-14.5); White Blood Count 4.6 K/mm3 (4.5-10.0)
== END 2025-01-25 09:01 | disposition home or self-care (01) ==
PROVIDERS: PCP Family Medicine; Visit Provider Family Medicine
DX: F41.9 Anxiety disorder, unspecified (principal); E66.3 Overweight; E78.5 Hyperlipidemia, unspecified; Z79.899 Other long term (current) drug therapy
CPT/HCPCS: 36415; 80053; 80061; 84443; 85027

== ENCOUNTER 2025-05-21 09:00 | Outpatient (CLI) | payer MEDICARE, SELFPAY ==
[2025-05-21 19:14] LABS: Alanine Aminotransferase 23 U/L (6-35); Albumin Level 4.4 g/dL (3.5-5.1); Alkaline Phosphatase 83 U/L (38-126); Anion Gap 8 mmol/L (4-12); Aspartate Amino Transferase 62 U/L (14-36); Bilirubin,Total 0.9 mg/dL (0.2-1.3); Blood Urea Nitrogen 27 mg/dL (7-17); Calcium 9.6 mg/dL (8.4-10.2); Carbon Dioxide 30 mmol/L (22-30); Chloride 101 mmol/L (98-107); Cholesterol 196 mg/dL (0-200); Estimated Glomerular Filt Rate > 60; Glucose 111 mg/dL (65-110); HDL Direct 57 mg/dL; LDL Cholesterol Direct 85 mg/dL; Potassium 4.7 mmol/L (3.4-5.0); Sodium 139 mmol/L (137-145); Total Protein 7.2 g/dL (6.3-8.2); Triglycerides 126 mg/dL (<150)
== END 2025-05-21 09:01 | disposition home or self-care (01) ==
PROVIDERS: PCP Family Medicine; Visit Provider Nurse Practitioner
DX: E78.5 Hyperlipidemia, unspecified (principal); F41.9 Anxiety disorder, unspecified; E66.3 Overweight; E03.9 Hypothyroidism, unspecified
CPT/HCPCS: 36415; 80053; 80061; 84443

== ENCOUNTER 2025-09-13 14:30 | Outpatient (CLI) | payer MEDICARE, SELFPAY ==
--- OUTSIDE RECORDS SUMMARY | 2024-03-10 15:00 | XMS_ITS | Encounter Summary ---
Author Organization [facility] Healthcare Address [address] [place] [address] Care Team Providers Care Financial Solutions Advisor Name Role Phone Adeline Rios Primary Care Provider +1- [phone] Reason for Visit * Diagnostic Imaging (Routine) - Closed Specialty Diagnoses / Procedures Referred By Janice t Referred To Contact Diagnoses Left hip pain Procedures XR Hip Left 2 or 3 Views W Pelvis Martin Castanon MD Phone: tel: fax: [facility] Referral ID Status Reason Start Date Expiration Date Visits Re quested Visits Authorized [id number] Closed 03/10/2024 04/09/2025 1 1 Encounter Details Date Type Department Care Team (Late st Contact Info) Description 03/10/2024 3:00 PM CDT Hospital Encounter [facility] Orthopedics and Sports Medicine at [address] [phone] Social History Tobacco Use Types Packs/Day Years Used Date Smoking Tobacco: Former Cigarettes Q uit: 06/13/1986 Smokeless Tobacco: Never Personal Safety Answer Date Recorded Getting School Help Needed Not on file 02/13 Comments Unknown Sex and Gender Information Value Date Recorded Sex Assigned at Not on file 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
--- OUTSIDE RECORDS SUMMARY | 2024-06-08 11:43 | XMS_ITS | Encounter Summary ---
Author Organization [facility] Healthcare Address [address] [place] [address] Care Team Providers Care Upholsterer Inside Name Role Phone Adeline Rios Primary Care Provider +1- [phone] Reason for Visit * Diagnostic Imaging (Routine) - Closed Specialty Diagnoses / Procedures Referred By Janice t Referred To Contact Diagnoses Left hip pain Procedures XR Hip Left 2 or 3 Views W Pelvis Martin Castanon MD Phone: tel: fax: [facility] Referral ID Status Reason Start Date Expiration Date Visits Re quested Visits Authorized [id number] Closed 06/08/2024 07/08/2025 1 1 Encounter Details Date Type Department Care Team (Late st Contact Info) Description 06/08/2024 11:43 AM CDT Hospital Encounter [facility] Orthopedics and Sports Medicine at [address] [phone] Social History Tobacco Use Types Packs/Day Years Used Date Smoking Tobacco: Former Cigarettes Q uit: 06/13/1986 Smokeless Tobacco: Never Personal Safety Answer Date Recorded Getting School Help Needed Not on file 02/13 Comments Unknown Sex and Gender Information Value Date Recorded Sex Assigned at Not on file 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
--- OUTSIDE RECORDS SUMMARY | 2025-09-13 15:34 | XMS_ITS | Clinical Summary ---
Author Organization [facility] Address [facility] [place] [address] Care Team Providers Care Cnc Mechanic Name Role Phone Ashly Barksdale MD Primary Care Provider [phone] [phone] Allergies Active Allergy Reactions Criticality Noted Date [...] (90 Base) MCG/ACT inhalerIndicati ons:Simple chronic bronchitis (CMS/HCC HHS/HCC) Inhale 2 puffs into the lungs every 4 (four) hours as needed for Wheezing or Shortness of breath. 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 Not on otf e Last Filed Vital Signs Vital Sign Reading Time Taken Comments Blood Pressure 98/74 12/20/2022 9:28 AM GAMING SURVEILLANCE OBSERVER Pulse 69 12/20/2022 9:28 AM GAMING SURVEILLANCE OBSERVER Temperature 36.8 C (98.2 F) 12/20/2022 9:28 AM GAMING SURVEILLANCE OBSERVER Respiratory Rate 17 12/20/2022 9:28 AM GAMING SURVEILLANCE OBSERVER Oxygen Saturation 98% 12/20/2022 9:28 AM GAMING SURVEILLANCE OBSERVER Inhaled Oxygen Concentration - - Weight 70.6 kg (155 lb 9.6 oz) 12/20/2022 9:28 A M GAMING SURVEILLANCE OBSERVER Height 163.8 cm (5' 4.5) 12/20/2022 9:28 AM GAMING SURVEILLANCE OBSERVER Body Mass Index 26.3 12/20/2022 9:28 AM GAMING SURVEILLANCE OBSERVER Plan of Treatment Health Maintenance Due Date Last Done Comments Colorectal Cancer Screening Colonoscopy (10 Years) 1951 Hepatitis C 1969 Mammogram Screening 1991 RSV Immunization or 60+ Years (1 - Risk 60-74 years 1-dose series) 2011 Annual Medicare Wellness Visit 2016 Dexa Scan (General) 2016 Pneumococcal Vaccine: 50+ Years (2 of 2 - PCV) 10/13/2019 10/13/2018 Zoster Vaccines (2 of 2) 12/31/2022 11/05/2022 COVID-19 Vaccine (3 - 2024-2 6 season) 2025 03/21/2021, 02/28/2021 Influenza Adult (#1) 2025 08/24/2021, 01/28/2020, 10/13/2018 DTaP, Tdap and Td Vaccines ( 2 [...] age to complete this topic Insurance [employer] MEDICARE Care Teams Cnc Mechanic Relationship Specialty Start Date End Date Ashly Barksdale MD [address] [place] [address] [address] PCP - General FAMILY PRACTICE 08/01/22
--- OUTSIDE RECORDS SUMMARY | 2025-09-13 15:34 | XMS_ITS | Clinical Summary ---
Author Organization [facility] Address [address] [place] [address] Care Team Providers Care Process Design Engineer Name Role Phone Unavailable Primary Care Provider Unavailabl e Source Comments [facility],non-owned Affiliates and Associated Physician Practices is amultiple site organization consisting of ambulatory clinics and hospital sitesin [place], [place], [place] and [place]. This disclosure is being madepursuant to the Care Everywhere program and may not contain all information available regarding this patient. Last updated 18.[facility] Social History Tobacco Use Types Packs/Day Years Used Date Smoking Tobacco: Never Assessed Comments Unknown Sex and Gender Information Value Date Recorded Sex Assigned at Not on file Legal Sex Female 6:20 AM CHICK SEXER Gender Identity Not on file Sexual Orientation [...] 2001 ZOSTER VACCINE (1 of 2) 2001 DEPRESSION SCREENING 12/02/2024 COVID-19 VACCINE (1 - 2023-2 5 season) 2025 INFLUENZA VACCINE (#1) 2025 Respiratory Syncytial Virus (RSV) Vaccine Pt: or [...] to complete this topic MENINGOCOCCAL (Group B) VACC INE SHARED DECISION-MAKING Aged Out No longer eligibl e based on patient's age to complete this topic MENINGOCOCCAL GROUPS A/C/Y/W VACCINE Aged Out No longer eligible b ased on patient's age to complete this topic Insurance [address] [facility] [place] [id number] UHC MANAGED MEDICARE ADV
--- OUTSIDE RECORDS SUMMARY | 2025-09-13 15:34 | XMS_ITS | Clinical Summary ---
Author Organization [facility] Address [address] [place] [address] Phone Care Team Providers Care Fisher Eel Spear Name Role Phone Murtaza Mims MD Primary Care Provider [phone] Allergies Active Allergy Reactions Criticality Noted Date [...] Comments Blood Pressure 124/78 01/12/2021 9:21 AM LOGGING RAFTER LABORER Pulse 102 02/10/2020 2:40 PM CDT Temperature 36.2 C (97.2 F) 02/10/2020 1:36 PM CDT Respiratory Rate 21 02/10/2020 2:40 PM CDT Oxygen Saturation 94% 02/10/2020 2:40 PM CDT Inhaled Oxygen Concentration - - Weight 69.9 kg (154 lb) 01/12/2021 9:21 AM LOGGING RAFTER LABORER Height 163.8 cm (5' 4.5) 01/12/2021 9:21 AM LOGGING RAFTER LABORER Body Mass Index 26.03 01/12/2021 9:21 AM LOGGING RAFTER LABORER Plan of Treatment Health Maintenance Due Date Last Done Comments DTAP/TDAP/TD VACCINES (1 - Tdap) 1970 BREAST CANCER SCREENING 1991 COLORECTAL SCREENING 1996 Colorectal Cancer Screening 1996 FIT-DNA Q 3 years 1996 FIT/FOBT Q 1 year 1996 Flex Sig/CT Colonography Q 5 years 1996 ZOSTER VACCINE (1 of 2) 2001 OSTEOPOROSIS SCREENING 2016 PNEUMOCOCCAL VACCINE 50+ YEARS (2 of 2 - PCV) 10/13/20 19 10/13/2018 INFLUENZA VACCINE (#1) 2025 10/13/2018 RSV VACCINE (60+ or ) (1 - 1-dose 75+ series) 2026 Medical Devices Implanted Type Area Stock Driver Device Identifier Shelf Expiration Date Model / Serial / Lot Natrelle Inspira Softtouch Breast Implant Implanted:Qty : 1 on 02/10/2020 by [place]aval[place] [facility] [place] Breast ALLERGAN- MEDICAL 12/07/2024 SSX-470 / [id number] / Natrelle Inspira Softtouch Breast Implant Implanted:Qty : 1 on 02/10/2020 by Brendan Zavaleta MD at [facility] [place] Right: Breast ALLERGAN- MEDICAL 12/05/2024 SSLP-145 / [id number] / [id number] Explanted Type Area Stock Driver Device Identifier Shelf Expiration Date Model / Serial / Lot Breast Implant Explanted:Qty: 1 on 02/10/2020 by [place]rendan Zavaleta MD [place] [facility] [place]: Breast Description:No other informa tion available on this implant Breast Implant Explanted:Qty: 1 on 02/10/2020 by Brendan Zavaleta MD at [facility] [place] Right: Breast Description:No information a vailable on this implant. Insurance RX OPTUM RX Member Subscriber Plan / Payer (Ef fective 2017-Present) Name:Luly Anderson Relation to Subscriber:Self Name:Luly Anderson Payer ID:Not on file Group ID:[id number] Type:RX Medicare Part D Address: [address] [facility] [address] Advance Directives For more information, please contact: [phone] * Full Code (Latest Code Status on File) Date Activated Date Inactivated Comments 02/10/2020 10:14 AM 02/10/2020 5:00 PM Care Teams Fisher Eel Spear Relationship Specialty Start Date End Date Murtaza Mims MD [address] [place] [address] PCP - General Family Practice 11/05/19
--- OUTSIDE RECORDS SUMMARY | 2025-09-13 15:34 | XMS_ITS | Clinical Summary ---
Author Organization [facility] Address [address] [place] [address] Care Team Providers Care Retail Assistant Manager Name Role Phone Adeline Rios DO Primary Care Provider [phone] Allergies Active Allergy Reactions Criticality Noted Date [...] on file Legal Sex Female 4:27 PM RETAIL MERCHANDISER Gender Identity Not on file Sexual Orientation [...] 2:59 PM CDT Height 165.1 cm (5' 5) 03/10/2024 2:59 PM CDT Body Mass Index [...] Well Visit 65+ 2016 Influenza Vaccine (#1) 2025 10/13/2018, 2015 Pneumococcal vaccine 65+ Completed 10/13/2018, 08/2016 Insurance [facility] [place] [address] [facility] MEDICARE UHC MEDICARE ADVANTAGE [facility] MEDICARE [facility] MEDICARE Care Teams Retail Assistant Manager Relationship Specialty Start Date End Date Adeline Rios DO PCP - General Family Medicine 05/31/23
[2025-09-13 19:41] LABS: CRP < 0.5 mg/dL (<1.0)
[2025-09-13 20:23] LABS: Hemoglobin A1C 5.3 % (<5.7)
== END 2025-09-13 14:31 | disposition home or self-care (01) ==
LOC: ANHGOSHLAB 14:31
PROVIDERS: Nurse Practitioner; PCP Family Medicine; Visit Provider Nurse Practitioner Family
DX: K58.0 Irritable bowel syndrome with diarrhea (principal); R73.01 Impaired fasting glucose
CPT/HCPCS: 36415; 83036; 86140

== ENCOUNTER 2025-09-17 10:27 | Outpatient (CLI) | payer MEDICARE, SELFPAY ==
--- OUTSIDE RECORDS SUMMARY | 2024-03-10 15:00 | XMS_ITS | Encounter Summary ---
Author Organization [facility] Healthcare Address [address] [place] [address] Care Team Providers Care Xray Tech Name Role Phone Adeline Rios Primary Care Provider +1- [phone] Reason for Visit * Diagnostic Imaging (Routine) - Closed Specialty Diagnoses / Procedures Referred By Janice t Referred To Contact Diagnoses Left hip pain Procedures XR Hip Left 2 or 3 Views W Pelvis Martin Castanon MD Phone: tel: fax: [facility] Referral ID Status Reason Start Date Expiration Date Visits Re quested Visits Authorized [id number] Closed 03/10/2024 04/09/2025 1 1 Encounter Details Date Type Department Care Team (Late st Contact Info) Description 03/10/2024 3:00 PM CDT Hospital Encounter [facility] Orthopedics and Sports Medicine at [address] [phone] Social History Tobacco Use Types Packs/Day Years Used Date Smoking Tobacco: Former Cigarettes Q uit: 06/13/1986 Smokeless Tobacco: Never Personal Safety Answer Date Recorded Getting School Help Needed Not on file 02/13 Comments Unknown Sex and Gender Information Value Date Recorded Sex Assigned at Not on file 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
--- OUTSIDE RECORDS SUMMARY | 2024-06-08 11:43 | XMS_ITS | Encounter Summary ---
Author Organization [facility] Healthcare Address [address] [place] [address] Care Team Providers Care Blasting Cap Assembler Name Role Phone Adeline Rios Primary Care Provider +1- [phone] Reason for Visit * Diagnostic Imaging (Routine) - Closed Specialty Diagnoses / Procedures Referred By Janice t Referred To Contact Diagnoses Left hip pain Procedures XR Hip Left 2 or 3 Views W Pelvis Martin Castanon MD Phone: tel: fax: [facility] Referral ID Status Reason Start Date Expiration Date Visits Re quested Visits Authorized [id number] Closed 06/08/2024 07/08/2025 1 1 Encounter Details Date Type Department Care Team (Late st Contact Info) Description 06/08/2024 11:43 AM CDT Hospital Encounter [facility] Orthopedics and Sports Medicine at [address] [phone] Social History Tobacco Use Types Packs/Day Years Used Date Smoking Tobacco: Former Cigarettes Q uit: 06/13/1986 Smokeless Tobacco: Never Personal Safety Answer Date Recorded Getting School Help Needed Not on file 02/13 Comments Unknown Sex and Gender Information Value Date Recorded Sex Assigned at Not on file 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
--- OUTSIDE RECORDS SUMMARY | 2025-09-17 11:07 | XMS_ITS | Clinical Summary ---
Author Organization [facility] Address [address] [place] [address] Care Team Providers Care Wedger Name Role Phone Adeline Rios DO Primary Care Provider [phone] Allergies Active Allergy Reactions Criticality Noted Date [...] on file Legal Sex Female 4:27 PM CODING MACHINE OPERATOR Gender Identity Not on file Sexual Orientation [...] Pneumococcal vaccine 65+ Completed 10/13/2018, 08/2016 Insurance [facility] MEDICARE ADVANTAGE [facility] MEDICARE UHC MEDICARE ADVANTAGE [facility] MEDICARE [facility] MED[facility] Care Teams Wedger Relationship Specialty Start Date End Date Adeline Rios DO PCP - General Family Medicine 05/31/23
--- OUTSIDE RECORDS SUMMARY | 2025-09-17 11:07 | XMS_ITS | Clinical Summary ---
Author Organization [facility] Address [address] [place] [address] Phone Care Team Providers Care Biology Specialist Name Role Phone Murtaza Mims MD Primary Care Provider [phone] Allergies Active Allergy Reactions Criticality Noted Date [...] Comments Blood Pressure 124/78 01/12/2021 9:21 AM MANAGER USER EXPERIENCE Pulse 102 02/10/2020 2:40 PM CDT Temperature 36.2 C (97.2 F) 02/10/2020 1:36 PM CDT Respiratory Rate 21 02/10/2020 2:40 PM CDT Oxygen Saturation 94% 02/10/2020 2:40 PM CDT Inhaled Oxygen Concentration - - Weight 69.9 kg (154 lb) 01/12/2021 9:21 AM MANAGER USER EXPERIENCE Height 163.8 cm (5' 4.5) 01/12/2021 9:21 AM MANAGER USER EXPERIENCE Body Mass Index 26.03 01/12/2021 9:21 AM MANAGER USER EXPERIENCE Plan of Treatment Health Maintenance Due Date [...] series) 2026 Medical Devices Implanted Type Area Tank Car Cleaner Device Identifier Shelf Expiration Date Model / Serial / Lot Natrelle Inspira Softtouch Breast Implant Implanted:Qty : 1 on 02/10/2020 by [place]rendan Zavaleta [place] [facility] [place] Breast ALLERGAN- MEDICAL 12/07/2024 SSX-470 / [id number] / Natrelle Inspira Softtouch Breast Implant Implanted:Qty : 1 on 02/10/2020 by Brendan Zavaleta MD [place] [facility] [place] Right: Breast ALLERGAN- MEDICAL 12/05/2024 SSLP-145 / [id number] / [id number] Explanted Type Area Tank Car Cleaner Device Identifier Shelf Expiration Date Model / Serial / Lot Breast Implant Explanted:Qty: 1 on 02/10/2020 by Brendan Zavaleta MD at [facility] [place] Left: Breast Description:No other informa tion available on this implant Breast Implant Explanted:Qty: 1 on 02/10/2020 by Brendan Zavaleta MD at [facility] [place] Right: Breast Description:No information a vailable on this implant. Insurance RX OPTUM RX Member Subscriber Plan / Payer (Ef fective 2017-Present) Name:Luly Anderson Relation to Subscriber:Self Name:Luly Anderson Payer ID:Not on file Group ID:[id number] Type:RX Medicare Part D Address: [address] [facility] [address] Advance Directives For more information, please contact: [phone] * Full Code (Latest Code Status on File) Date Activated Date Inactivated Comments 02/10/2020 10:14 AM 02/10/2020 5:00 PM Care Teams Biology Specialist Relationship Specialty Start Date End Date Murtaza Mims MD [address] [place] [address] PCP - General Family Practice 11/05/19
--- OUTSIDE RECORDS SUMMARY | 2025-09-17 11:07 | XMS_ITS | Clinical Summary ---
Author Organization [facility] Address [address] [place] [address] Care Team Providers Care Planting Supervisor Name Role Phone Unavailable Primary Care Provider Unavailabl e Source Comments [facility],non-owned Affiliates and Associated Physician Practices is amultiple site organization consisting of ambulatory clinics and hospital sitesin [place], [place], [place] and [place]. This disclosure is being madepursuant to the Care Everywhere program and may not contain all information available regarding this patient. Last updated 18.[facility] Social History Tobacco Use Types Packs/Day Years Used Date Smoking Tobacco: Never Assessed Comments Unknown Sex and Gender Information Value Date Recorded Sex Assigned at Not on file Legal Sex Female 6:20 AM CLEANER HOUSEKEEPING Gender Identity Not on file Sexual Orientation [...]
--- OUTSIDE RECORDS SUMMARY | 2025-09-17 11:07 | XMS_ITS | Clinical Summary ---
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 Not on otf e Last Filed Vital Signs Vital Sign Reading Time Taken Comments Blood Pressure 98/74 12/20/2022 9:28 AM SIGN FABRICATOR Pulse 69 12/20/2022 9:28 AM SIGN FABRICATOR Temperature 36.8 C (98.2 F) 12/20/2022 9:28 AM SIGN FABRICATOR Respiratory Rate 17 12/20/2022 9:28 AM SIGN FABRICATOR Oxygen Saturation 98% 12/20/2022 9:28 AM SIGN FABRICATOR Inhaled Oxygen Concentration - - Weight 70.6 kg (155 lb 9.6 oz) 12/20/2022 9:28 A M SIGN FABRICATOR Height 163.8 cm (5' 4.5) 12/20/2022 9:28 AM SIGN FABRICATOR Body Mass Index 26.3 12/20/2022 9:28 AM SIGN FABRICATOR Plan of Treatment Health Maintenance Due Date [...] 2 - Td or Tdap) 10/01/2032 10/01/2022 Hepatitis A Vaccines Aged Out No long er eligible based on patient's age to complete this topic Meningococcal B Vaccine Aged Out No l onger eligible based on patient's age to complete this topic Meningococcal Vaccine Aged Out No felicia ronni eligible based on patient's age to complete this topic RSV Immunizations Under 20 Months Aged Out No longer eligible b ased on patient's age to complete this topic [facility] Care Teams Urban Anthropologist Relationship Specialty Start Date End Date Ashly aBrksdale MD [address] [place] [address] DR [address] [place] [address] PCP - General FAMILY PRACTICE 08/01/22
[2025-09-21 07:09] LABS: Calprotectin, Fecal 113 ug/g (0-120)
[2025-09-21 16:08] LABS: Pancreatic Elastase, Fecal >800 (>200)
== END 2025-09-17 10:28 | disposition home or self-care (01) ==
PROVIDERS: PCP Family Medicine; Visit Provider Nurse Practitioner Family
DX: K58.0 Irritable bowel syndrome with diarrhea (principal)
CPT/HCPCS: 82653; 83993

== ENCOUNTER 2025-10-13 11:54 | Outpatient (CLI) | payer MEDICARE, SELFPAY ==
--- OUTSIDE RECORDS SUMMARY | 2024-03-10 14:00 | XMS_ITS | Encounter Summary ---
Author Organization [facility] Healthcare Address [address] [place] [address] Care Team Providers Care Traditional Chinese Herbalist Name Role Phone Adeline Rios Primary Care Provider +1- [phone] Reason for Visit * Diagnostic Imaging (Routine) - Closed Specialty Diagnoses / Procedures Referred By Janice t Referred To Contact Diagnoses Left hip pain Procedures XR Hip Left 2 or 3 Views W Pelvis Martin Castanon MD Phone: tel: fax: [facility] Referral ID Status Reason Start Date Expiration Date Visits Re quested Visits Authorized [id number] Closed 03/10/2024 04/09/2025 1 1 Encounter Details Date Type Department Care Team (Late st Contact Info) Description 03/10/2024 3:00 PM CDT Hospital Encounter [facility] Orthopedics and Sports Medicine at [address] [phone] Social History Tobacco Use Types Packs/Day Years Used Date Smoking Tobacco: Former Cigarettes Q uit: 06/13/1986 Smokeless Tobacco: Never Personal Safety Answer Date Recorded Getting School Help Needed Not on file 02/13 Comments Unknown Sex and Gender Information Value Date Recorded Sex Assigned at Not on file 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
--- OUTSIDE RECORDS SUMMARY | 2024-06-08 10:43 | XMS_ITS | Encounter Summary ---
Author Organization [facility] Healthcare Address [address] [place] [address] Care Team Providers Care Solder Making Laborer Name Role Phone Adeline Rios Primary Care Provider +1- [phone] Reason for Visit * Diagnostic Imaging (Routine) - Closed Specialty Diagnoses / Procedures Referred By Janice t Referred To Contact Diagnoses Left hip pain Procedures XR Hip Left 2 or 3 Views W Pelvis Martin Castanon MD Phone: tel: fax: [facility] Referral ID Status Reason Start Date Expiration Date Visits Re quested Visits Authorized [id number] Closed 06/08/2024 07/08/2025 1 1 Encounter Details Date Type Department Care Team (Late st Contact Info) Description 06/08/2024 11:43 AM CDT Hospital Encounter [facility] Orthopedics and Sports Medicine at [address] [phone] Social History Tobacco Use Types Packs/Day Years Used Date Smoking Tobacco: Former Cigarettes Q uit: 06/13/1986 Smokeless Tobacco: Never Personal Safety Answer Date Recorded Getting School Help Needed Not on file 02/13 Comments Unknown Sex and Gender Information Value Date Recorded Sex Assigned at Not on file Legal Sex Female 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
--- NOTE | ~2025-10-13 | MM_ITS ---
EXAMINATION: MM scrn laura implant BI w oswaldo HISTORY: Screening mammogram TECHNIQUE: Craniocaudal and mediolateral oblique 3-D tomosynthesis images with implant displacement and synthetic 2-D images were generated. Craniocaudal and mediolateral oblique views of the breasts without implant displacement were obtained using full field digital mammography. CAD analysis was submitted and interpreted. COMPARISON: Comparison to multiple prior studies sequentially, with oldest reviewed study dated 03/01/2017. BREAST PARENCHYMAL COMPOSITION: Dense: The breasts are heterogeneously dense, which may obscure small masses FINDINGS: There are changes of left mastectomy with reconstruction and bilateral breast implants. There is no evidence of suspicious mass, calcification, or architectural distortion to suggest malignancy in either breast. There has been no suspicious interval change. IMPRESSION: 1. No mammographic evidence of malignancy. 2. Recommend routine screening mammography in one year. BI-RADS Category 1: Negative Reviewed, dictated and finalized at location B. PRESS ROLL TENDER
--- NOTE | ~2025-10-13 | DEXA_ITS ---
Bone Density Report Name: CAL STAFFORD Age: 74 Sex: Female Ethnicity: White Date of : 1950 Indication: postmenopausal; screening for osteoporosis; height loss; Referring Provider: Suly Leonard Study: Bone densitometry was performed. Exam Date: October 13, 2025 Accession number: [id number] Bone Density: Region BMD T-score Z-score Classification AP Spine(L1-L4) 1.191 1.3 3.6 Normal World Health Organization criteria for BMD impression classify patients as: Normal (T-score at or above -1.0), Osteopenia (T-score between -1.0 and -2.5), or Osteoporosis (T-score at or below -2.5). Clinical Information Provided by Patient: Patient maximum height was 64 Menopause Age: 46 No regular weight bearing exercise Drinks caffeinated beverages Onset of menses at age 14 Number of children 0 Impression: The patient has normal bone mass. Discussion: LOW RISK OF FRACTURE; BONE DENSITY IS WELL ABOVE THE MINIMUM DESIRABLE LEVEL AND ABOVE AVERAGE FOR AGE AND SEX AT ALL SKELETAL SITES TESTED. This person's bone density is above expected limits for age and sex. This is rarely clinically significant, but should be pursued if there are significant musculoskeletal complaints. The patient should follow a healthful lifestyle (good nutrition with adequate calcium and vitamin D, and appropriate weight-bearing exercise). Follow-Up: Consider repeating this study in 5 years or sooner if there is some new clinical indication. Reported by: YANDY on 10/13/2025 12:35:00 PM. Reviewed, dictated and finalized at location A.
--- OUTSIDE RECORDS SUMMARY | 2025-10-13 13:19 | XMS_ITS | Clinical Summary ---
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 MEDICARE ADVANTAGE [facility] Address: [address] [address] [place] [address] FORMERLY [facility] MEDICARE [facility] Address: [address] [place] [address] UHC MEDICARE ADVANTAGE [facility] MEDIC[facility] Address: [address] [address] [place] [address] [facility]LY [facility] MEDICARE [facility] MEDICARE Care Teams Senior Scheduler Relationship Specialty Start Date End Date Adeline Rios DO PCP - General Family Medicine 05/31/23
--- OUTSIDE RECORDS SUMMARY | 2025-10-13 13:19 | XMS_ITS | Clinical Summary ---
Author Organization [facility] Address [address] [place] [address] Care Team Providers Care Research Program Assistant Name Role Phone Unavailable Primary Care Provider Unavailabl e Source Comments [facility],non-owned Affiliates and Associated Physician Practices is amultiple site organization consisting of ambulatory clinics and hospital sitesin [place], [place], [place] and [place]. This disclosure is being madepursuant to the Care Everywhere program and may not contain all information available regarding this patient. 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
--- OUTSIDE RECORDS SUMMARY | 2025-10-13 13:19 | XMS_ITS | Clinical Summary ---
Author Organization [facility] Address [address] [place] [address] Phone Care Team Providers Care Sap Business Analyst Name Role Phone Murtaza Mims MD Primary Care Provider [phone] Allergies Active Allergy Reactions Criticality Noted Date [...] Comments Blood Pressure 124/78 01/12/2021 9:21 AM MAT MACHINE TENDER Pulse 102 02/10/2020 2:40 PM CDT Temperature 36.2 C (97.2 F) 02/10/2020 1:36 PM CDT Respiratory Rate 21 02/10/2020 2:40 PM CDT Oxygen Saturation 94% 02/10/2020 2:40 PM CDT Inhaled Oxygen Concentration - - Weight 69.9 kg (154 lb) 01/12/2021 9:21 AM MAT MACHINE TENDER Height 163.8 cm (5' 4.5) 01/12/2021 9:21 AM MAT MACHINE TENDER Body Mass Index 26.03 01/12/2021 9:21 AM MAT MACHINE TENDER Plan of Treatment Health Maintenance Due Date [...] series) 2026 Medical Devices Implanted Type Area Wiping Cloth Cutter Device Identifier Shelf Expiration Date Model / Serial / Lot Natrelle Inspira Softtouch Breast Implant Implanted:Qty : 1 on [place]10[place] [facility] [place] Breast ALLERGAN- MEDICAL 12/07/2024 SSX-470 / [id number] / Natrelle Inspira Softtouch Breast Implant Implanted:Qty : 1 on 02/10/2020 by [place] [facility] [place]: Breast ALLERGAN- MEDICAL 12/05/2024 SSLP-145 / [id number] / [id number] Explanted Type Area Wiping Cloth Cutter Device Identifier Shelf Expiration Date Model / Serial / Lot Breast Implant Explanted:Qty: 1 on 02/10/2020 by [place]rendan Zaval[place] [facility] [place]: Breast Description:No other informa tion available on this implant Breast Implant Explanted:Qty: 1 on 02/10/2020 by Brendan Zavaleta MD at [facility] [place]: Breast Description:No information a vailable on this implant. Insurance RX OPTUM RX Member Subscriber Plan / Payer (Ef fective 2017-Present) Name:Luly Anderson Relation to Subscriber:Self Name:Luly Anderson Payer ID:Not on file Group ID:[id number] Type:RX Medicare Part D Address: [address] [facility] [address] Advance Directives For more information, please contact: [phone] * Full Code (Latest Code Status on File) Date Activated Date Inactivated Comments 02/10/2020 10:14 AM 02/10/2020 5:00 PM Care Teams Sap Business Analyst Relationship Specialty Start Date End Date Murtaza Mims MD [address] [place] [address] PCP - General Family Practice 11/05/19
--- OUTSIDE RECORDS SUMMARY | 2025-10-13 13:19 | XMS_ITS | Clinical Summary ---
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 Not on file Not on otf e Last Filed Vital Signs Vital Sign Reading Time Taken Comments Blood Pressure 98/74 12/20/2022 9:28 AM PNEUDRAULIC SYSTEMS MECHANIC Pulse 69 12/20/2022 9:28 AM PNEUDRAULIC SYSTEMS MECHANIC Temperature 36.8 C (98.2 F) 12/20/2022 9:28 AM PNEUDRAULIC SYSTEMS MECHANIC Respiratory Rate 17 12/20/2022 9:28 AM PNEUDRAULIC SYSTEMS MECHANIC Oxygen Saturation 98% 12/20/2022 9:28 AM PNEUDRAULIC SYSTEMS MECHANIC Inhaled Oxygen Concentration - - Weight 70.6 kg (155 lb 9.6 oz) 12/20/2022 9:28 A M PNEUDRAULIC SYSTEMS MECHANIC Height 163.8 cm (5' 4.5) 12/20/2022 9:28 AM PNEUDRAULIC SYSTEMS MECHANIC Body Mass Index 26.3 12/20/2022 9:28 AM PNEUDRAULIC SYSTEMS MECHANIC Plan of Treatment Health Maintenance Due Date [...] patient's age to complete this topic Insurance [facility] Care Teams Health And Wellness Instructor Relationship Specialty Start Date End Date Ashly Barksdale MD [address] [place] [address] [address] [place] [address] PCP - General FAMILY PRACTICE 08/01/22
== END 2025-10-13 11:55 | disposition home or self-care (01) ==
PROVIDERS: PCP Family Medicine; Visit Provider Nurse Practitioner
DX: Z12.31 Encounter for screening mammogram for malignant neoplasm of breast (principal); Z78.0 Asymptomatic menopausal state
CPT/HCPCS: 77063; 77067; 77080

== ENCOUNTER 2025-10-29 08:12 | Outpatient (CLI) | payer MEDICARE, SELFPAY ==
--- OUTSIDE RECORDS SUMMARY | 2024-03-10 14:00 | XMS_ITS | Encounter Summary ---
Author Organization [facility] Healthcare Address [address] [place] [address] Care Team Providers Care Solar Energy Sales Specialist Name Role Phone Adeline Rios Primary Care Provider +1- [phone] Reason for Visit * Diagnostic Imaging (Routine) - Closed Specialty Diagnoses / Procedures Referred By Janice t Referred To Contact Diagnoses Left hip pain Procedures XR Hip Left 2 or 3 Views W Pelvis Martin Castanon MD Phone: tel: fax: [facility] Referral ID Status Reason Start Date Expiration Date Visits Re quested Visits Authorized [id number] Closed 03/10/2024 04/09/2025 1 1 Encounter Details Date Type Department Care Team (Late st Contact Info) Description 03/10/2024 3:00 PM CDT Hospital Encounter [facility] Orthopedics and Sports Medicine at [address] [phone] Social History Tobacco Use Types Packs/Day Years Used Date Smoking Tobacco: Former Cigarettes Q uit: 06/13/1986 Smokeless Tobacco: Never Personal Safety Answer Date Recorded Getting School Help Needed Not on file 02/13 Comments Unknown Sex and Gender Information Value Date Recorded Sex Assigned at Not on file 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 Gender Identity Not on file Sexual Orientation Not on file documented as of this encounter Plan of Treatment Not on file documented as of this encounter Procedures Procedure Name Priority Date/Time Associated Diagnosis Comments XR HIP LEFT W PELVIS 2 OR 3 VIEWS Schedule Routine, Read Routine (OP Routine) 03/10/2024 3:06 PM CDT Left hip pain documented in this encounter Results * XR Hip Left 2 or 3 Views W Pelvis (03/10/2024 3:06 PM CDT) Anatomical Region Laterality Modality Lower Extremities, Hip, Pelvis Left D igital Radiography Narrative 03/10/2024 3:15 PM CDT Today we obtained x-rays of the hip and pelvis and they show that the prosthesis is in excellent position with no signs of loosening or wear or any other problems. us Martin Castanon MD IMG XR PROCEDURES Final R esult documented in this encounter Visit Diagnoses Not on filedocumented in this encounter Care Teams Solar Energy Sales Specialist Relationship Specialty Start Date End Date Adeline Rios DO PCP - General Family Medicine 05/31/23 documented as of this encounter
--- OUTSIDE RECORDS SUMMARY | 2024-06-08 10:43 | XMS_ITS | Encounter Summary ---
Author Organization [facility] Healthcare Address [address] [place] [address] Care Team Providers Care Basket Turner Name Role Phone Adeline Rios Primary Care Provider +1- [phone] Reason for Visit * Diagnostic Imaging (Routine) - Closed Specialty Diagnoses / Procedures Referred By Janice t Referred To Contact Diagnoses Left hip pain Procedures XR Hip Left 2 or 3 Views W Pelvis Martin Castanon MD Phone: tel: fax: [facility] Referral ID Status Reason Start Date Expiration Date Visits Re quested Visits Authorized [id number] Closed 06/08/2024 07/08/2025 1 1 Encounter Details Date Type Department Care Team (Late st Contact Info) Description 06/08/2024 11:43 AM CDT Hospital Encounter [facility] Orthopedics and Sports Medicine at [address] [phone] Social History Tobacco Use Types Packs/Day Years Used Date Smoking Tobacco: Former Cigarettes Q uit: 06/13/1986 Smokeless Tobacco: Never Personal Safety Answer Date Recorded Getting School Help Needed Not on file 02/13 Comments Unknown Sex and Gender Information Value Date Recorded Sex Assigned at Not on file 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 Gender Identity Not on file Sexual Orientation Not on file documented as of this encounter Plan of Treatment Not on file documented as of this encounter Procedures Procedure Name Priority Date/Time Associated Diagnosis Comments XR HIP LEFT W PELVIS 2 OR 3 VIEWS Schedule Routine, Read Routine (OP Routine) 06/08/2024 11:48 AM CDT Left hip pain documented in this encounter Results * XR Hip Left 2 or 3 Views W Pelvis (06/08/2024 11:48 AM CDT) Anatomical Region Laterality Modality Lower Extremities, Hip, Pelvis Left D igital Radiography Narrative 06/08/2024 11:49 AM CDT Today we obtained x-rays of the hip and pelvis and they show that the prosthesis is in excellent position with no signs of loosening or wear or any other problems. The leg length and offset appeared to be equal on x-ray. us Martin Castanon MD IMG XR PROCEDURES Final R esult documented in this encounter Visit Diagnoses Not on filedocumented in this encounter Care Teams Basket Turner Relationship Specialty Start Date End Date Adeline Rios DO PCP - General Family Medicine 05/31/23 documented as of this encounter
--- OUTSIDE RECORDS SUMMARY | 2025-10-29 08:15 | XMS_ITS | Clinical Summary ---
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
--- OUTSIDE RECORDS SUMMARY | 2025-10-29 08:15 | XMS_ITS | Clinical Summary ---
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 Not on file Not on otf e Last Filed Vital Signs Vital Sign Reading Time Taken Comments Blood Pressure 98/74 12/20/2022 9:28 AM MANAGER BALANCE Pulse 69 12/20/2022 9:28 AM MANAGER BALANCE Temperature 36.8 C (98.2 F) 12/20/2022 9:28 AM MANAGER BALANCE Respiratory Rate 17 12/20/2022 9:28 AM MANAGER BALANCE Oxygen Saturation 98% 12/20/2022 9:28 AM MANAGER BALANCE Inhaled Oxygen Concentration - - Weight 70.6 kg (155 lb 9.6 oz) 12/20/2022 9:28 A M MANAGER BALANCE Height 163.8 cm (5' 4.5) 12/20/2022 9:28 AM MANAGER BALANCE Body Mass Index 26.3 12/20/2022 9:28 AM MANAGER BALANCE Plan of Treatment Health Maintenance Due Date [...] patient's age to complete this topic Insurance [facility] Care Teams Heading And Priming Operator Relationship Specialty Start Date End Date Ashly Barksdale MD [address] [place] [address] [address] [place] [id number] PCP - General FAMILY PRACTICE 08/01/22
--- OUTSIDE RECORDS SUMMARY | 2025-10-29 08:15 | XMS_ITS | Clinical Summary ---
Author Organization [facility] Address [address] [place] [address] Phone Care Team Providers Care Skin Care Instructor Name Role Phone Murtaza Mims MD Primary [...] Comments Blood Pressure 124/78 01/12/2021 9:21 AM SUPERVISOR RECLAMATION Pulse 102 02/10/2020 2:40 PM CDT Temperature 36.2 C (97.2 F) 02/10/2020 1:36 PM CDT Respiratory Rate 21 02/10/2020 2:40 PM CDT Oxygen Saturation 94% 02/10/2020 2:40 PM CDT Inhaled Oxygen Concentration - - Weight 69.9 kg (154 lb) 01/12/2021 9:21 AM SUPERVISOR RECLAMATION Height 163.8 cm (5' 4.5) 01/12/2021 9:21 AM SUPERVISOR RECLAMATION Body Mass Index 26.03 01/12/2021 9:21 AM SUPERVISOR RECLAMATION Plan of Treatment Health Maintenance Due Date [...] series) 2026 Medical Devices Implanted Type Area Recooperer Device Identifier Shelf Expiration Date Model / Serial / Lot Natrelle Inspira Softtouch Breast Implant Implanted:Qty : 1 on 02/10/2020 by Brendan Zavaleta MD at [facility] Mammary Left: Breast [employer] 12/07/2024 SSX-470 / [id number] / Natrelle Inspira Softtouch Breast Implant Implanted:Qty : 1 on 02/10/2020 by Brendan Zavaleta MD at [facility] [place] Mammary Right: Breast [employer] 12/05/2024 [id number] / [id number] / [id number] Explanted Type Area Recooperer Device Identifier Shelf Expiration Date Model / Serial / Lot Breast Implant Explanted:Qty: 1 on 02/10/2020 by Brendan Zavaleta MD at [facility] Left: Breast Description:No other informa tion available on this implant Breast Implant Explanted:Qty: 1 on 02/10/2020 by Brendan Zavaleta MD at [facility] Right: Breast Description:No information a vailable on this implant. Insurance RX [employer] RX Member Subscriber Plan / Payer (Ef fective 2017-Present) Name:Luly Anderson Relation to Subscriber:Self Name:Luly Anderson Payer ID:Not on file Group ID:[id number] Type:RX Medicare Part D Address: [address] [facility] [address] Advance Directives For more information, please contact: [phone] * Full Code (Latest Code Status on File) Date Activated Date Inactivated Comments 02/10/2020 10:14 AM 02/10/2020 5:00 PM Care Teams Skin Care Instructor Relationship Specialty Start Date End Date Murtaza Mims MD [address] [place] [address] PCP - General Family Practice 11/05/19
--- OUTSIDE RECORDS SUMMARY | 2025-10-29 08:15 | XMS_ITS | Clinical Summary ---
Author Organization [facility] Address [address] [place] [address] Care Team Providers Care Taproom Attendant Name Role Phone Unavailable Primary Care Provider Unavailabl e Source Comments [facility],non-owned Affiliates and Associated Physician Practices is amultiple site organization consisting of ambulatory clinics and hospital sitesin [place], [place], [place] and [place]. This disclosure is being madepursuant to the Care Everywhere program and may not contain all information available regarding this patient. 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
[2025-10-30 18:52] LABS: Hematocrit 41.5 % (37.0-47.0); Hemoglobin 13.7 g/dL (12.0-15.0); Mean Corpuscular HGB Conc 33.0 g/dl (32-36); Mean Corpuscular Hemoglobin 30.5 pg (26-34); Mean Corpuscular Volume 92.4 fl (80-100); Platelet Count Result 229 k/mm3 (150-375); Red Blood Count 4.49 M/mm3 (4.2-5.4); White Blood Count 5.9 K/mm3 (4.5-10.0)
[2025-10-30 19:11] LABS: Alanine Aminotransferase 24 U/L (6-35); Albumin Level 4.5 g/dL (3.5-5.1); Alkaline Phosphatase 60 U/L (38-126); Anion Gap 6 mmol/L (4-12); Aspartate Amino Transferase 31 U/L (14-36); Bilirubin,Total 0.4 mg/dL (0.2-1.3); Blood Urea Nitrogen 24 mg/dL (7-17); Calcium 9.5 mg/dL (8.4-10.2); Carbon Dioxide 30 mmol/L (22-30); Chloride 103 mmol/L (98-107); Cholesterol 184 mg/dL (0-200); Estimated Glomerular Filt Rate > 60; Glucose 92 mg/dL (65-110); HDL Direct 49 mg/dL; Potassium 4.3 mmol/L (3.4-5.0); Sodium 139 mmol/L (137-145); Total Protein 7.1 g/dL (6.3-8.2); Triglycerides 128 mg/dL (<150)
[2025-10-30 19:47] LABS: Thyroid Stimulating Hormone 2.860 uIU/mL (0.465-4.680)
== END 2025-10-29 08:13 | disposition home or self-care (01) ==
LOC: ANHGOSHLAB 08:13
PROVIDERS: PCP Family Medicine; Visit Provider Nurse Practitioner
DX: E78.5 Hyperlipidemia, unspecified (principal); I10 Essential (primary) hypertension; E55.9 Vitamin D deficiency, unspecified
CPT/HCPCS: 36415; 80053; 80061; 82306; 84443; 85027